=== PATIENT | female | born 1940 | race Caucasian/White ===

== ENCOUNTER 2017-08-29 09:39 | Outpatient (POV) | payer MEDICARE, OTHER, SELFPAY | END 2017-08-29 12:52 | disposition home or self-care (01) | PROVIDERS: Family Provider Nurse Practitioner Family; PCP Nurse Practitioner Family; Visit Provider Urology | DX: R39.198 Other difficulties with micturition (principal); R35.0 Frequency of micturition; R39.15 Urgency of urination | CPT/HCPCS: 53665 ==

== ENCOUNTER → 2017-09-11 13:25 | Outpatient (CLI) | payer MEDICARE, OTHER, SELFPAY ==
[2017-09-11 16:54] LABS: PHA INR Fingerstick 2.4 (0.9-1.1)
== END ==
PROVIDERS: Family Provider Emergency Medicine; PCP Nurse Practitioner Family; Visit Provider Internal Medicine
DX: I48.91 Unspecified atrial fibrillation (principal); Z79.01 Long term (current) use of anticoagulants; Z51.81 Encounter for therapeutic drug level monitoring
CPT/HCPCS: 85610; 99211; G0463

== ENCOUNTER → 2017-09-30 13:07 | Outpatient (CLI) | payer MEDICARE, OTHER, SELFPAY ==
[2017-09-30 14:09] LABS: Prothrombin Time 50.3 seconds (9.4-11.8)
[2017-09-30 14:10] LABS: INR 4.59 (0.9-1.1)
[2017-09-30 14:39] LABS: PHA INR Fingerstick 4.3 (0.9-1.1)
--- NOTE | 2017-09-30 16:09 | XR_ITS ---
XR chest 2V Ordering Physician: Otto Schaffer MD Patient Age: 77 years: Female HISTORY: ITS.REASON: cough Cough congestion. Flu 3 weeks ago. TECHNIQUE: PA and lateral chest COMPARISON : FINDINGS No focal pneumonia or consolidation. Noncontrasted technique exaggerates markings. Coarsening of markings at the right infrahilar region is similar to previous studies considering technique. Summary markings at the left infrahilar region most likely reflecting a stable changes as well. I see no definitive acute infiltrate. There is no pleural effusion. Small calcified granuloma left lung base with calcified hilar nodes bilaterally reflecting old granulomatous disease. Lateral film appears similar with kyphosis T-spine and slight stable loss of height and wedging thoracic vertebra contributing. Mild hyperexpansion. Ribs intact. IMPRESSION: Stable chronic changes with nothing definitely acute
== END ==
PROVIDERS: Pharmacist; Family Provider Emergency Medicine; PCP Nurse Practitioner Family; Visit Provider Internal Medicine
DX: R05 Cough (principal); I48.91 Unspecified atrial fibrillation; Z79.01 Long term (current) use of anticoagulants
CPT/HCPCS: 36415; 71046; 85610; 99211; G0463

== ENCOUNTER → 2017-10-09 13:11 | Outpatient (CLI) | payer MEDICARE, OTHER, SELFPAY | END | disposition home or self-care (01) | PROVIDERS: PCP Emergency Medicine; Visit Provider Nurse Practitioner Family | DX: Z79.01 Long term (current) use of anticoagulants (principal); I48.91 Unspecified atrial fibrillation; Z51.81 Encounter for therapeutic drug level monitoring | CPT/HCPCS: 85610 ==

== ENCOUNTER 2017-10-21 13:23 | Outpatient (CLI) | payer MEDICARE, OTHER, SELFPAY | END 2017-10-21 16:33 | disposition home or self-care (01) | PROVIDERS: PCP Emergency Medicine; Visit Provider Internal Medicine | DX: Z79.01 Long term (current) use of anticoagulants (principal); Z51.81 Encounter for therapeutic drug level monitoring; I48.91 Unspecified atrial fibrillation | CPT/HCPCS: 85610; 99211; G0463 ==

== ENCOUNTER 2017-11-15 10:51 | Outpatient (CLI) | payer MEDICARE, OTHER, SELFPAY ==
[2017-11-15 14:00] LABS: Alanine Aminotransferase 50 U/L (12-78); Albumin Level 3.4 gm/dL (3.4-5.0); Alkaline Phosphatase 98 U/L (46-116); Anion Gap 10.5 mEq/L (5-15); Aspartate Amino Transferase 46 U/L (15-37); Bilirubin,Direct 0.2 mg/dL (0.0-0.2); Bilirubin,Total 0.6 mg/dL (0.2-1.0); Blood Urea Nitrogen 31 mg/dL (7-18); Carbon Dioxide 28 mmol/L (21.0-32.0); Chloride 102 mmol/L (98-107); Creatinine,Serum 1.45 mg/dL (0.55-1.02); Estimated Glomerular Filt Rate 35 ml/min (>60); Free Thyroxine Index 5.5 ug/dL (5.93-13.13); GFR (African American) 42 ML/MIN (>60); Glucose 81 mg/dL (74-106); Potassium 4.5 mmoL/L (3.5-5.1); Sodium 136 mmol/L (136-145); T4 (Thyroxine) 15.6 ug/dl (4.7-13.3); Thyroid Stimulating Hormone 1.97 uIU/ml (0.358-3.740); Total Protein,Serum 6.8 gm/dL (6.4-8.2); Triiodothryronine (T3) Uptake 35 % (31-39)
[2017-11-15 14:02] LABS: PHA INR Fingerstick 1.6 (0.9-1.1)
== END 2017-11-15 15:00 | disposition home or self-care (01) ==
LOC: ACC 10:52
PROVIDERS: Internal Medicine Cardiovascular Disease; Physician Assistant; PCP Emergency Medicine; Visit Provider Emergency Medicine
DX: Z79.01 Long term (current) use of anticoagulants (principal); Z51.81 Encounter for therapeutic drug level monitoring; I48.91 Unspecified atrial fibrillation
CPT/HCPCS: 36415; 80048; 80076; 84436; 84443; 84479; 85610; 99211; G0463

== ENCOUNTER 2017-11-15 12:50 | Outpatient (CLI) | payer MEDICARE, OTHER, SELFPAY | END 2017-11-15 15:19 | LOC: LAB 12:56 | PROVIDERS: Visit Provider Internal Medicine Cardiovascular Disease | DX: E78.2 Mixed hyperlipidemia; I10 Essential (primary) hypertension; I48.2 Chronic atrial fibrillation; I25.10 Atherosclerotic heart disease of native coronary artery without angina pectoris; Z95.5 Presence of coronary angioplasty implant and graft | CPT/HCPCS: 36415; 80048; 80076; 84436; 84443; 84479; 85610; 99211; G0463 ==

== ENCOUNTER 2017-11-25 13:23 | Outpatient (CLI) | payer MEDICARE, OTHER, SELFPAY ==
[2017-11-25 14:25] LABS: PHA INR Fingerstick 1.7 (0.9-1.1)
== END 2017-11-25 15:45 | disposition home health service (06) ==
LOC: ACC 13:24
PROVIDERS: Family Provider Emergency Medicine; PCP Emergency Medicine; Visit Provider Internal Medicine
DX: Z79.01 Long term (current) use of anticoagulants (principal); Z51.81 Encounter for therapeutic drug level monitoring; I48.91 Unspecified atrial fibrillation
CPT/HCPCS: 85610; 99211; G0463

== ENCOUNTER 2017-12-09 13:21 | Outpatient (CLI) | payer MEDICARE, OTHER, SELFPAY ==
[2017-12-09 13:59] LABS: PHA INR Fingerstick 2.8 (0.9-1.1)
--- NOTE | 2017-12-09 15:38 | XR_ITS ---
XR knee LT 4V COMPARISON: None HISTORY: Left knee pain after recent injury TECHNIQUE: AP lateral and oblique views FINDINGS: There is minor joint space narrowing medially. There is no significant spurring of the tibial spines. There is mild narrowing of patellofemoral space with minor spurring of the patella superiorly. There is no effusion and there is no fracture or loose body. Bone mineralization appears normal. There does appear to be mild diffuse soft tissue swelling of the infrapatellar region and anterior to the tibia. IMPRESSION: Probable soft tissue injury inferior to the patella along with minor degenerative changes of knee as noted
== END 2017-12-09 14:12 | disposition home or self-care (01) ==
LOC: ACC 13:23
PROVIDERS: PCP Emergency Medicine; Visit Provider Internal Medicine
DX: Z79.01 Long term (current) use of anticoagulants; Z51.81 Encounter for therapeutic drug level monitoring; I48.91 Unspecified atrial fibrillation; S80.02XA Contusion of left knee, initial encounter; W19.XXXA Unspecified fall, initial encounter
CPT/HCPCS: 73564; 85610; 99211; G0463

== ENCOUNTER 2017-12-17 11:51 | Inpatient (IN) ==
--- NOTE | 2017-12-17 12:07 | Emergency Department Note ---
ED Disposition Clinical Impression: Hemarthrosis Disposition: Still a Patient Condition on Discharge: Fair Referrals: Tracee Arthur APRN [Primary Care Provider] - - Critical Care Critical Care Time: No Attestation: On , the high probability of a clinically significant, sudden or life threatening deterioration of the following system(s) required my full and direct attention, intervention and personal management. The time I documented below is in addition to time spent performing reported procedures but includes the following listed in this critical care notation. Medical Decision Making - Ilan Inquiry Pt receiving controlled substance: Yes Ilan was queried for this patient: No Reason not queried -: Emergent pt cond-no time Risks and benefits of using a controlled substance: were not discussed with pt by me Vital Signs: 12/17/17 11:55 Temperature 98.3 F Temperature Source Oral Pulse Rate [Right Radial] 67 Respiratory Rate 24 Blood Pressure [Right Arm] 190/124 Blood Pressure Mean [Right Arm] 146 Blood Pressure Source [Right Arm] Automatic Cuff Blood Pressure Position [Right Arm] Supine 02 Sat by Pulse Oximetry 96 Oxygen Delivery Method Room Air - Lab Data Lab Results 12/17/17 11:45: WBC 8.1, RBC 3.15 L, Hgb 8.0 L, Hct 27.8 L, MCV 88.3, MCH 25.4 L , MCHC 28.8 L, RDW 17.5, Plt Count 475 H, MPV 7.6, Neut % (Auto) 81.0 H, Lymph % (Auto) 9.9 L, [place] % (Auto) 7.3, Eos % (Auto) 1.3, Baso % (Auto) 0.4, Neut # ( Auto) 6.6, Lymph # (Auto) 0.8, [place] # (Auto) 0.6, Eos # (Auto) 0.1, Baso # (Auto ) 0.0 12/17/17 11:45: PT 20.4 H, INR 1.88 H 12/17/17 11:45: Sodium 140, Potassium 5.1, Chloride 104, Carbon Dioxide 27, Anion Gap 14.1, BUN 29 H, Creatinine 1.62 H, Estimated Creat Clear 1, Estimated GFR 31 L, Est GFR ( Amer) 37 L, Glucose 104, Calcium 8.7, Total Bilirubin 1.1 H, AST 43 H, ALT 30, Alkaline Phosphatase 108, Total Protein 6.6, Albumin 3.4, Globulin 3.2, Albumin/Globulin Ratio 1.1 Result diagrams: 12/17/17 11:45 12/17/17 11:45 Orders (Tests/Meds): ED MEDICATIONS Discontinued Medications Generic Name Dose Route Start Last Admin Trade Name Freq PRN Reason Stop Dose Admin Meperidine HCl 25 mg 12/17/17 13:48 12/17/17 13:53 Meperidine 25mg/Ml 1ml Syringe IV 12/17/17 13:49 25 mg ONCE ONE Administration Morphine Sulfate 2 mg 12/17/17 12:12 12/17/17 12:13 Morphine 2mg/Ml Syringe IV 12/17/17 12:13 2 mg ONCE ONE Administration Morphine Sulfate 4 mg 12/17/17 12:13 12/17/17 12:14 Morphine 4mg/Ml Syringe IV 12/17/17 12:14 4 mg ONCE ONE Administration Morphine Sulfate 4 mg 12/17/17 13:07 12/17/17 13:12 Morphine 4mg/Ml Syringe IV 12/17/17 13:08 4 mg ONCE ONE Administration Morphine Sulfate 4 mg 12/17/17 13:40 12/17/17 13:48 Morphine 4mg/Ml Syringe IV 12/17/17 13:41 Not Given ONCE ONE Ondansetron HCl 4 mg 12/17/17 12:12 12/17/17 12:13 Zofran 4mg/2ml Vial IV 12/17/17 12:13 4 mg ONCE ONE Administration - Radiology Data #1 Image(s): Knee Image Reviewed: Yes I reviewed the patient's radiology image Large effusion. No fracture seen. - ECG Data Tracing #1 EKG interpreted by Chapin Jacobs MD: Rhythm: sinus Rate: 63 [place]: normal Ectopy: Premature atrial contraction Conduction: normal ST Segment Changes: none T Wave Changes: none Q Waves: none No evidence of acute ischemia or injury Medical Decision Narrative: 1:15 PM: Discussed with Dr. Arguello. He requests a knee immobilizer and a polar pack. Does not feel arthrocentesis is indicated at this time due to the risk of recurrence and continuous oozing creating a tract to the intra-articular space. Does not feel that reversal of anticoagulation will be necessary, but will leave that to primary care provider. Call placed to Dr. Gentile. 1:50 PM: I have discussed the case with Dr. Gentile who agrees to admit the patient to the hospital. We discussed the patient's clinical information, including history, exam, laboratory and radiology results and ED course. Per hospital procedure, I will write temporary bridge inpatient orders on the patient. Specific orders requested by the admitting physician: Discuss anticoagulation with Ricki at Coumadin clinic. I spoke with Ricki and he recommends holding Coumadin today, starting Lovenox 75 mg twice daily tomorrow morning. 1:30 PM: Patient states morphine is making the pain worse. General Adult HPI - General Chief complaint: PAIN Stated complaint: LEFT KNEE PAIN Time Seen by Provider: 12/17/17 12:07 Mode of Arrival: EMS Limitations: No Limitations Description of Symptoms (Recalled from ER Triage Doc. by RN): PT STATES SHE FELL ON HER LEFT KNEE 2 WEEKS AGO AND HAD A XRAY DONE LAST SATURDAY. PT'S LEFT KNEE IS VERY SWOLLEN,BRUISED, HOT AND EXTREMELY PAINFUL. - History of Present Illness HPI narrative: Brought in by ambulance for left pain and swelling. She fell 2 weeks ago and injured her left knee. She saw her primary care provider on 12/09/17 and had an x -ray which showed no fractures. She has had another fall since then, but says she only injured her right knee. Right knee does not hurt, just her left knee hurts. Last night she began having swelling of her left knee with increasing pain and it has progressed through the night. Pain is also now running down her left butler. No numbness or tingling. She is on Coumadin for a.fib. She last had her INR checked a week ago and says it was 2.7. - Related Data Home Medications Medication Instructions Recorded Confirmed aspirin 81 mg tablet,delayed 81 mg PO QDAY 09/17/17 12/17/17 release calcium carbonate 600 mg calcium 600 mg PO ONCE tab 09/17/17 12/17/17 (1,500 mg) tablet hydralazine 50 mg tablet 75 mg PO TID 09/17/17 12/17/17 omeprazole 40 mg capsule,delayed 40 mg PO ONCE 09/17/17 12/17/17 release polyethylene glycol 3350 17 17 g PO DAILY 09/17/17 12/17/17 gram/dose oral powder potassium chloride ER 10 mEq 10 meq PO TID 09/17/17 12/17/17 tablet,extended release pravastatin 40 mg tablet 40 mg PO QHS 09/17/17 12/17/17 warfarin 3 mg tablet 3 mg PO QDAY 09/17/17 12/17/17 Amiodarone HCl [Amiodarone 200mg 200 mg PO QDAY 12/17/17 12/17/17 Tab] Bisoprolol Fumarate [Zebeta 5mg 5 mg PO ONCE 12/17/17 12/17/17 tablet] Bumetanide 2 mg PO QDAY 12/17/17 12/17/17 Isosorbide Mononitrate [Isosorbide 120 mg PO QAM 12/17/17 12/17/17 Mononitrate ER] Tramadol HCl [Tramadol ER 100mg 100 mg PO QDAY 12/17/17 12/17/17 Tab] Allergies Allergy/AdvReac Type Severity Reaction Status Date / Time cephalexin [From KEFLEX] Allergy Mild Verified 12/17/17 12:03 ciprofloxacin [CIPROFLOXACIN] Allergy Mild Verified 12/17/17 12:03 Sulfa (Sulfonamide Allergy Mild Verified 12/17/17 12:03 Antibiotics) [SULFA (SULFONAMIDE ANTIBIOTICS)] [facility] History I have reviewed the patient's past medical history: Yes Medical History: Reports:: Cancer (COLON), Gastroesophageal Reflux Disease(GERD) , Hypertension Denies:: Diabetes Mellitus Type 1, Diabetes Mellitus Type 2, MRSA Comment: 2 Heart Stent Other Surgeries: Yes: Colonoscopy, Colon Resection, Hernia Repair, Hysterectomy- Partial, Thyroidectomy Amputation: No Fractures: Yes Comment: HEART ATTACK, AFIB, HEART STENT X 2 - Social History Smoking Status: Never smoker Tobacco Type: cigarettes Alcohol Intake: never Substance Use Type: denies use Occupational Status: retired Housing: house - Psychiatric History Expresses thoughts of harming self/others: None Suicide Plan Description: No Plan Family Hx:: Stroke ROS Obtained: Yes Systems reviewed as appropriate & no additional complaints - Constitutional Constitutional: Denies fever(s) Physical Exam - General General appearance: alert, in distress (pain) - Head Head exam: atraumatic - Respiratory Respiratory exam: Absent: respiratory distress - Cardiovascular Cardiovascular exam: Present: regular rate, normal rhythm - Expanded Lower Extremity Exam Left Comment: Massive effusion of left knee, tense. Tender. Ecchymosis from left knee down the left foot. Normal pedal pulses, capillary refill, warmth, sensation, and movement of toes. Right Comment: Ecchymosis from right knee down the right foot. No joint effusion. Normal neurovascular status. - Neurological Exam Neurological exam: Present: alert, oriented X3. Absent: motor sensory deficit
[2017-12-17 12:21] LABS: Basophils % 0.4 % (0.1-2.0); Eosinophils # 0.1 K/mm3 (0.0-0.4); Eosinophils % 1.3 % (0.1-12.0); Lymphocytes # 0.8 K/mm3 (0.7-4.5); Lymphocytes % 9.9 K/mm3 (10-50); Mean Corpuscular HGB Conc 28.8 g/dL (31.8-35.4); Mean Corpuscular Hemoglobin 25.4 pg (27.0-31.2); Mean Corpuscular Volume 88.3 fl (81-99); Mean Platelet Volume 7.6 fl (7.4-10.4); Monocytes # 0.6 K/mm3 (0.1-1.0); Monocytes % 7.3 % (1.7-9.3); Neutrophils # 6.6 K/mm3 (1.8-7.8); Platelet Count 475 K/mm3 (142-424); Red Blood Count 3.15 M/mm3 (4.20-5.40); Red Cell Distribution Width 17.5 % (11.5-17.5); White Blood Count 8.1 K/mm3 (4.8-10.8)
[2017-12-17 12:24] LABS: INR 1.88 (0.9-1.1); Prothrombin Time 20.4 seconds (9.4-11.8)
[2017-12-17 12:27] LABS: Albumin Level 3.4 gm/dL (3.4-5.0); Albumin/Globulin Ratio 1.1 (1.1-1.8); Anion Gap 14.1 mEq/L (5-15); Bilirubin,Total 1.1 mg/dL (0.2-1.0); Calcium 8.7 mg/dL (8.5-10.1); Globulin 3.2 gm/dl (1.3-3.2); Potassium 5.1 mmoL/L (3.5-5.1); Total Protein,Serum 6.6 gm/dL (6.4-8.2)
[2017-12-17 12:33] LABS: Hematocrit 27.8 % (37.0-47.0)
[2017-12-17 14:43] LABS: Microscopic, Urine URINE MICROSCOPIC (MICROSCOPIC)
[2017-12-17 14:53] LABS: Appearance,Urine CLEAR (Clear); Bilirubin,Urine Negative (Negative); Blood, Urine Negative (Negative); Color,Urine YELLOW (Yellow); Glucose,Urine (UA) Negative (Negative); Ketones,Urine TRACE (Negative); Leukocyte Esterase,Urine Negative (Negative); PH,Urine 6.5 (5.0-8.5); Protein,Urine Negative (Negative); Urobilinogen,Urine 0.2 EU/dl (0.2)
[2017-12-17 15:04] LABS: Bacteria,Urine Trace /lpf; WBC,Urine Occasional #/hpf (0-3)
--- NOTE | 2017-12-17 15:07 | Pharmacy Consult Notes ---
[facility] Pharmacy VTE Monitoring - Patient Demographics Admission date: 12/17/17 Report Date: 12/17/17 Time: 15:06 Allergies/Adverse Reactions: Patient Allergies cephalexin [From KEFLEX] Allergy (Mild, Verified 12/17/17 12:03) ciprofloxacin [CIPROFLOXACIN] Allergy (Mild, Verified 12/17/17 12:03) Sulfa (Sulfonamide Antibiotics) [SULFA (SULFONAMIDE ANTIBIOTICS)] Allergy (Mild , Verified 12/17/17 12:03) Height: 1.6 m Weight: 2.353 kg Patient Problems: Current Active Problems Hemarthrosis (Acute) - VTE Risk Labs: VTE Related Lab Results Hgb 8.0 g/dL (12.2-16.2) L 12/17/17 11:45 Hct 27.8 % (37.0-47.0) L 12/17/17 11:45 Plt Count 475 K/mm3 (142-424) H 12/17/17 11:45 PT 20.4 seconds (9.4-11.8) H 12/17/17 11:45 INR 1.88 (0.9-1.1) H 12/17/17 11:45 BUN 29 mg/dL (7-18) H 12/17/17 11:45 Creatinine 1.62 mg/dL (0.55-1.02) H 12/17/17 11:45 Estimated Creat Clear 1 mL/min (0-300) 12/17/17 11:45 Clinical Trial Participant: No - Prophylaxis VTE Prophylaxis Ordered?: Yes Types of VTE Prophylaxis: Pharmacological Pharmacologic Type: Enoxaparin (AND WARFARIN)
--- NOTE | 2017-12-17 17:27 | Consult Report ---
*Admission Date: 12/17/17 *Chief complaint: Left leg pain *History of present illness: The patient is a 77-year-old female who is currently on Coumadin for a history of atrial fibrillation. She has a cardiac history positive for myocardial infarction and stent placement. She reports she fell on December 05 and incurred swelling and bruising involving her left knee area. This progressed somewhat in size and pain however the patient was able to continue walking. She reports that the pain increased enough to prompt her to visit the emergency department where she was evaluated and x-rays taken on December 09. No effusion was noted nor was fracture or loose body noted at that time. There was diffuse soft tissue swelling present. The patient reports that last night she noted the leg to begin to swell again and she noted increased swelling throughout the night. This morning, she noted the inability to walk secondary to pain and was brought to the emergency department by ambulance. I was called by the emergency department staff and consulted by telephone. The patient was admitted to Dr. Gentile and a polar pack and knee immobilizer applied. The patient reportedly responded better to Demerol for pain control then morphine. Examination shows the patient to be alert and cooperative and in no apparent distress. She states she feels much better with the polar pack and the immobilizer in place. Both are removed for examination of the knee. Range of motion is not tested secondary to known inflammation and pain. X-rays show no evidence of fracture however there is a large infra-patella fusion consistent with hematoma/bursal fluid. Given the history, this is much more likely to be a collection of blood. Exam shows ecchymosis involving the skin. I do not detect distinct areas of fluctuance and there is some rebound firmness suggestive that there may be a clot in the bursa itself. Although the skin is quite ecchymotic, no ulcerations or deficits are noted. The toes are warm and dry and capillary refill appears less than 2 seconds. There are older ecchymotic changes in the ankle and toes which are nontender. In the pretibial area, exam shows inflammatory tenderness. In the region of the knee itself the tenderness is much more acute. ASSESSMENT the patient has a large bursal fluid collection in the infrapatellar region which is consistent with bleeding. At present, no distinct pocket of fluid suitable for aspiration is noted. [Note is made that the patient is not interested in aspiration] There is no cellulitis or inflammatory changes suggestive of an infection RECOMMENDATIONS reapplied the polar pack and the knee immobilizer per the patient's request. The knee immobilizer and polar pack are for comfort only. With the patient's increased BUN and creatinine, I will not recommend NSAIDs at this point although these may be a consideration if approved by her attending physician. Noted pharmacies recommendation for Lovenox 75 mg twice daily. Again I will defer to Dr. Gentile's opinion on the necessity of this for her atrial fibrillation, however from an orthopedic standpoint, minimizing anticoagulants at this stage will likely help further progression or bleeding into the bursa and subcutaneous tissues. I will recheck her in the morning and if swelling is increased, I will speak to radiology and see if they would be able to ultrasound this area and possibly aspirate any liquefied hematoma. She also may be a candidate for mobilization using negative polarity techniques offered by the lymphedema clinic. Will follow. [facility] History Medical History: Reports:: Atrial Fibrillation, Gastroesophageal Reflux Disease( GERD), Hyperlipidemia, Hypertension Denies:: Cancer, Diabetes Mellitus Type 1, Diabetes Mellitus Type 2, MRSA Other Medical History: Reports: Arthritis Other Surgeries: Yes: Colonoscopy, Colon Resection, Hernia Repair, Hysterectomy- Partial, Thyroidectomy Amputation: No Fractures: Yes - *Social History Educational Level: Completed High School Smoking Status: Never smoker Tobacco Type: cigarettes Alcohol Intake: never Substance Use Type: denies use Occupational Status: retired Housing: house Household Members: none - Psychiatric History Expresses thoughts of harming self/others: None Suicide Plan Description: No Plan *Family Hx:: Cancer, Diabetes, Heart Attack, Hyperlipidemia, Hypertension, Stroke Meds Home Medications Medication Instructions Recorded Confirmed Type aspirin 81 mg tablet,delayed 81 mg PO DAILY 09/17/17 12/17/17 History release calcium carbonate 600 mg calcium 600 mg PO ONCE tab 09/17/17 12/17/17 History (1,500 mg) tablet hydralazine 50 mg tablet 75 mg PO TID 09/17/17 12/17/17 History omeprazole 40 mg capsule,delayed 40 mg PO DAILY 09/17/17 12/17/17 History release polyethylene glycol 3350 17 17 g PO DAILY 09/17/17 12/17/17 History gram/dose oral powder potassium chloride ER 10 mEq 10 meq PO TID 09/17/17 12/17/17 History tablet,extended release pravastatin 40 mg tablet 40 mg PO HS 09/17/17 12/17/17 History warfarin 3 mg tablet 1.5 mg PO MOFR 09/17/17 12/17/17 History Amiodarone HCl [Amiodarone 200mg 200 mg PO DAILY 12/17/17 12/17/17 History Tab] Bisoprolol Fumarate [Zebeta 5mg 5 mg PO DAILY 12/17/17 12/17/17 History tablet] Bumetanide 2 mg PO DAILY 12/17/17 12/17/17 History Isosorbide Mononitrate [Isosorbide 120 mg PO DAILY 12/17/17 12/17/17 History Mononitrate ER] Tramadol HCl [Tramadol ER 100mg 100 mg PO DAILY 12/17/17 12/17/17 History Tab] Warfarin Sodium [Warfarin Sodium] 3 mg PO SUTUWETHSA 12/17/17 12/17/17 History Allergies Allergy/AdvReac Type Severity Reaction Status Date / Time cephalexin [From KEFLEX] Allergy Mild Verified 12/17/17 12:03 ciprofloxacin [CIPROFLOXACIN] Allergy Mild Verified 12/17/17 12:03 Sulfa (Sulfonamide Allergy Mild Verified 12/17/17 12:03 Antibiotics) [SULFA (SULFONAMIDE ANTIBIOTICS)] Exam Vital signs and Labs for Last 24 Hours: Temp Pulse Resp BP Pulse Ox 97.9 F 69 20 191/85 100 12/17/17 15:50 12/17/17 15:50 12/17/17 15:50 12/17/17 15:50 12/17/17 15:50 Laboratory Results - last 24 hr 12/17/17 14:35: Urine Color Yellow, Urine Appearance Clear, Urine pH 6.5, Ur Specific [place] 1.010, Urine Protein Negative, Urine Glucose (UA) Negative, Urine Ketones Trace, Urine Blood Negative, Urine Nitrate Negative, Urine Bilirubin Negative, Urine Urobilinogen 0.2, Ur Leukocyte Esterase Negative, Urine RBC None, Urine WBC Occasional, Ur Squamous Epith Cells None, Urine Bacteria Trace I & O for Last 24 hours: Intake & Output 12/15/17 12/16/17 12/17/17 12/18/17 11:59 11:59 11:59 11:59 Weight 161 lb 4 oz Results - Labs Result Diagrams: 12/17/17 11:45 12/17/17 11:45 Labs: All other labs normal.
[2017-12-18 06:46] LABS: INR 1.07 (0.9-1.1); Prothrombin Time 11.6 seconds (9.4-11.8)
[2017-12-18 07:12] LABS: Basophils % 0.3 % (0.1-2.0); Eosinophils # 0.2 K/mm3 (0.0-0.4); Eosinophils % 2.8 % (0.1-12.0); Lymphocytes # 2.1 K/mm3 (0.7-4.5); Lymphocytes % 28.7 K/mm3 (10-50); Mean Corpuscular HGB Conc 29.3 g/dL (31.8-35.4); Mean Corpuscular Hemoglobin 29.4 pg (27.0-31.2); Mean Corpuscular Volume 100.1 fl (81-99); Mean Platelet Volume 7.9 fl (7.4-10.4); Monocytes # 0.5 K/mm3 (0.1-1.0); Monocytes % 6.7 % (1.7-9.3); Neutrophils # 4.5 K/mm3 (1.8-7.8); Neutrophils % 61.5 % (37.0-80.0); Platelet Count 269 K/mm3 (142-424); Red Blood Count 3.06 M/mm3 (4.20-5.40); Red Cell Distribution Width 16.5 % (11.5-17.5); White Blood Count 7.3 K/mm3 (4.8-10.8)
[2017-12-18 07:26] LABS: Hemoglobin 9.1 g/dL (12.2-16.2)
[2017-12-18 07:27] LABS: Hematocrit 30.6 % (37.0-47.0)
--- NOTE | 2017-12-18 09:09 | History & Physical Report ---
*Admission Date: 12/17/17 *Chief complaint: swollen jt *History of present illness: The patient is a 77-year-old female who is currently on Coumadin for a history of atrial fibrillation. She has a cardiac history positive for myocardial infarction and stent placement. She reports she fell on December 05 and incurred swelling and bruising involving her left knee area. This progressed somewhat in size and pain however the patient was able to continue walking. She reports that the pain increased enough to prompt her to visit the emergency department where she was evaluated and x-rays taken on December 09. No effusion was noted nor was fracture or loose body noted at that time. There was diffuse soft tissue swelling present. The patient reports that last night she noted the leg to begin to swell again and she noted increased swelling throughout the night. This morning, she noted the inability to walk secondary to pain and was brought to the emergency department by ambulance. I was called by the emergency department staff and consulted by telephone. The patient was admitted to Dr. Gentile and a polar pack and knee immobilizer applied. The patient reportedly responded better to Demerol for pain control then morphine. Examination shows the patient to be alert and cooperative and in no apparent distress. She states she feels much better with the polar pack and the immobilizer in place. Both are removed for examination of the knee. Range of motion is not tested secondary to known inflammation and pain. X-rays show no evidence of fracture however there is a large infra-patella fusion consistent with hematoma/bursal fluid. Given the history, this is much more likely to be a collection of blood. Exam shows ecchymosis involving the skin. I do not detect distinct areas of fluctuance and there is some rebound firmness suggestive that there may be a clot in the bursa itself. Although the skin is quite ecchymotic, no ulcerations or deficits are noted. The toes are warm and dry and capillary refill appears less than 2 seconds. There are older ecchymotic changes in the ankle and toes which are nontender. In the pretibial area, exam shows inflammatory tenderness. In the region of the knee itself the tenderness is much more acute. ASSESSMENT the patient has a large bursal fluid collection in the infrapatellar region which is consistent with bleeding. At present, no distinct pocket of fluid suitable for aspiration is noted. [Note is made that the patient is not interested in aspiration] There is no cellulitis or inflammatory changes suggestive of an infection RECOMMENDATIONS reapplied the polar pack and the knee immobilizer per the patient's request. The knee immobilizer and polar pack are for comfort only. With the patient's increased BUN and creatinine, I will not recommend NSAIDs at this point although these may be a consideration if approved by her attending physician. Noted pharmacies recommendation for Lovenox 75 mg twice daily. Again I will defer to Dr. Gentile's opinion on the necessity of this for her atrial fibrillation, however from an orthopedic standpoint, minimizing anticoagulants at this stage will likely help further progression or bleeding into the bursa and subcutaneous tissues. I will recheck her in the morning and if swelling is increased, I will speak to radiology and see if they would be able to ultrasound this area and possibly aspirate any liquefied hematoma. She also may be a candidate for mobilization using negative polarity techniques offered by the lymphedema clinic. Will follow. [facility] History I have reviewed the patient's past medical history: Yes Medical History: Reports:: Atrial Fibrillation, Gastroesophageal Reflux Disease( GERD), Hyperlipidemia, Hypertension Denies:: Cancer, Diabetes Mellitus Type 1, Diabetes Mellitus Type 2, MRSA Other Medical History: Reports: Arthritis Other Surgeries: Yes: Colonoscopy, Colon Resection, Hernia Repair, Hysterectomy- Partial, Thyroidectomy Amputation: No Fractures: Yes - *Social History Educational Level: Completed High School Smoking Status: Never smoker Tobacco Type: cigarettes Alcohol Intake: never Substance Use Type: denies use Occupational Status: retired Housing: house Household Members: none - Psychiatric History Expresses thoughts of harming self/others: None Suicide Plan Description: No Plan *Family Hx:: Cancer, Diabetes, Heart Attack, Hyperlipidemia, Hypertension, Stroke Review of Systems - Review of Systems Review of systems:: pertinent systems reviewed and negative unless documented below - Constitutional Denies fever(s) - Eyes Denies change in vision - ENT Denies sinus pain - *Cardiovascular Denies chest pain at rest - *Respiratory Denies cough - *Gastrointestinal Denies abdominal pain - *Musculoskeletal Reports joint pain, Reports joint swelling, Reports limited joint movement - Integumentary/Breasts Denies rash - *Neurologic Denies dizziness Meds Home Medications Medication Instructions Recorded Confirmed Type aspirin 81 mg tablet,delayed 81 mg PO DAILY 09/17/17 12/17/17 History release calcium carbonate 600 mg calcium 600 mg PO ONCE tab 09/17/17 12/17/17 History (1,500 mg) tablet hydralazine 50 mg tablet 75 mg PO TID 09/17/17 12/17/17 History omeprazole 40 mg capsule,delayed 40 mg PO DAILY 09/17/17 12/17/17 History release polyethylene glycol 3350 17 17 g PO DAILY 09/17/17 12/17/17 History gram/dose oral powder potassium chloride ER 10 mEq 10 meq PO TID 09/17/17 12/17/17 History tablet,extended release pravastatin 40 mg tablet 40 mg PO HS 09/17/17 12/17/17 History warfarin 3 mg tablet 1.5 mg PO MOFR 09/17/17 12/17/17 History Amiodarone HCl [Amiodarone 200mg 200 mg PO DAILY 12/17/17 12/17/17 History Tab] Bisoprolol Fumarate [Zebeta 5mg 5 mg PO DAILY 12/17/17 12/17/17 History tablet] Bumetanide 2 mg PO DAILY 12/17/17 12/17/17 History Isosorbide Mononitrate [Isosorbide 120 mg PO DAILY 12/17/17 12/17/17 History Mononitrate ER] Tramadol HCl [Tramadol ER 100mg 100 mg PO DAILY 12/17/17 12/17/17 History Tab] Warfarin Sodium [Warfarin Sodium] 3 mg PO SUTUWETHSA 12/17/17 12/17/17 History Allergies Allergy/AdvReac Type Severity Reaction Status Date / Time cephalexin [From KEFLEX] Allergy Mild Verified 12/17/17 12:03 ciprofloxacin [CIPROFLOXACIN] Allergy Mild Verified 12/17/17 12:03 Sulfa (Sulfonamide Allergy Mild Verified 12/17/17 12:03 Antibiotics) [SULFA (SULFONAMIDE ANTIBIOTICS)] Exam Vital signs and Labs for Last 24 Hours: Temp Pulse Resp BP Pulse Ox 99.5 F 63 20 141/58 100 12/18/17 07:25 12/18/17 07:25 12/18/17 07:25 12/18/17 07:25 12/18/17 07:25 Laboratory Results - last 24 hr 12/17/17 14:35: Urine Color Yellow, Urine Appearance Clear, Urine pH 6.5, Ur Specific [place] 1.010, Urine Protein Negative, Urine Glucose (UA) Negative, Urine Ketones Trace, Urine Blood Negative, Urine Nitrate Negative, Urine Bilirubin Negative, Urine Urobilinogen 0.2, Ur Leukocyte Esterase Negative, Urine RBC None, Urine WBC Occasional, Ur Squamous Epith Cells None, Urine Bacteria Trace 12/18/17 06:05: WBC 7.3, RBC 3.06 L, Hgb 9.1 L D, Hct 30.6 L, MCV 100.1 H, MCH 29.4, MCHC 29.3 L, RDW 16.5, Plt Count 269 D, MPV 7.9, Neut % (Auto) 61.5, Lymph % (Auto) 28.7, [place] % (Auto) 6.7, Eos % (Auto) 2.8, Baso % (Auto) 0.3, Neut # (Auto) 4.5, Lymph # (Auto) 2.1, [place] # (Auto) 0.5, Eos # (Auto) 0.2, Baso # (Auto) 0.0 12/18/17 06:05: PT 11.6, INR 1.07 I & O for Last 24 hours: Intake & Output 12/15/17 12/16/17 12/17/17 12/18/17 11:59 11:59 11:59 11:59 Intake Total 480 / 480 Output Total 1700 / 1700 Balance -1220 / -1220 Weight 161 lb 4 oz - Constitutional no acute distress - *Routine HEENT Exam Head: Present: normocephalic Eye: Present: EOMI, PERRL ENT: Absent: mucous membranes dry - *Routine Neck Exam Absent: JVD - *Routine Respiratory Exam Absent: respiratory distress - *Routine Cardiovascular Exam Present: RRR, murmur - *Routine Abdominal Exam Present: soft - *Routine Extremities Exam Present: joint swelling Comments: hematoma with knee immbolizer - *Routine Skin Exam Present: intact - *Routine Neurological Exam Present: alert, CN II-XII intact - Routine Psychiatric Exam Present: normal affect H&P: Result - Labs Labs: Short CBC 12/18/17 Range/Units 06:05 WBC 7.3 (4.8-10.8) K/mm3 Hgb 9.1 L D (12.2-16.2) g/dL Hct 30.6 L (37.0-47.0) % Plt Count 269 D (142-424) K/mm3 Urine 12/17/17 Range/Units 14:35 Urine Color Yellow (Yellow) Urine Appearance Clear (Clear) Urine pH 6.5 (5.0-8.5) Ur Specific [place] 1.010 (1.005-1.030) Urine Protein Negative (Negative) Urine Glucose (UA) Negative (Negative) Assessment and Plan (1) Chronic atrial fibrillation Current visit: No Status: Chronic Category: Medical Code(s): I48.2 - Chronic atrial fibrillation (2) Traumatic hematoma of left knee Current visit: No Status: Acute Qualifiers: Encounter type: initial encounter Qualified Code(s): S80.02XA - Contusion of left knee, initial encounter Category: Medical Code(s): S80.02XA - Contusion of left knee, initial encounter
--- NOTE | 2017-12-18 16:21 | Progress Note ---
Subjective Date: 12/18/17 Time: 09:28 Principal diagnosis: Bursal effusion/hematoma left knee Interval history: Patient rested reasonably comfortably last night however she had significant problems in attempting to ambulate with physical therapy this morning secondary to pain when the leg was in a dependent position. PN: Obj Ex Vital signs: Temp Pulse Resp BP Pulse Ox 98.7 F 60 20 138/55 97 12/18/17 15:24 12/18/17 15:24 12/18/17 15:24 12/18/17 15:24 12/18/17 15:24 Narrative: Examination shows prominent ecchymosis and tenderness along the lateral aspect of the knee and lower leg and calf. Interestingly, the patient does not have marketed tenderness in the tissues overlying the infrapatellar bursa. This is, per radiograph and exam, quite enlarged secondary to an apparent hematoma. Although the skin is quite ecchymotic, there is not appear to be any ulcerations or skin breakdown. - Urinary Catheter Management Mabry Cath placed during this visit: yes Urethral indwelling: Yes Reason for continuing: Other continuation reason (per primary care physician) Insertion date: 12/17/17 Insertion time: 14:34 Progress Note: A&P (1) Chronic atrial fibrillation Status: Chronic Current Visit: No (2) Traumatic hematoma of left knee Status: Acute Assessment and plan: Currently the patient is being seen by physical therapy. She seems to be tolerating the Polar Care cold therapy unit well. I have spoken with physical therapy and they will evaluate the candidate to see if negative polarity treatment to help mobilize some edema fluid may be facial. Although I do not expect this will mobilize intrabursal hematoma, it may help mobilize some of the residual subcutaneous hematoma and certainly some of the edema fluid associated with the inflammatory process of the hematoma resolution. Additionally, therapy will look at pulsed ultrasound to see if they can help break up any hematoma in the bursa as well. From an orthopedic standpoint, minimizing use of anticoagulants would be beneficial in helping prevent recurrence or expansion of this hematoma. I certainly realize that her atrial fibrillation must take precedence but nonetheless, even minimizing use of interval bridge medication such as Lovenox may be helpful from the hematoma aspect. Suspect this will likely take several weeks to resolve. Current Visit: No
--- NOTE | 2017-12-19 10:35 | Progress Note ---
Internal Medicine - PN: Subj *Date: 12/19/17 *Time: 16:46 Exam Vital signs and Labs for Last 24 Hours: Temp Pulse Resp BP Pulse Ox 98.1 F 54 L 18 121/49 93 L 12/19/17 08:00 12/19/17 08:00 12/19/17 08:00 12/19/17 08:00 12/19/17 08:00 I & O for Last 24 hours: Intake & Output 12/16/17 12/17/17 12/18/17 12/19/17 11:59 11:59 11:59 11:59 Intake Total 1320 / 1320 Output Total 1500 / 1500 Balance -180 / -180 - Constitutional no acute distress - *Routine HEENT Exam Head: Present: normocephalic Eye: Present: PERRL ENT: Present: mucous membranes moist - *Routine Neck Exam Present: full ROM - *Routine Respiratory Exam Present: CTA bilaterally - *Routine Cardiovascular Exam Present: RRR - *Routine Abdominal Exam Present: soft, normoactive bowel sounds - *Routine Extremities Exam Present: full ROM Comments: sangita lower ext brusing, left knee in brace and ice pack in place - Routine Back/Spine/Pelvis Exam Back/Spine: Present: full ROM - *Routine Skin Exam Present: intact - *Routine Neurological Exam Present: alert, oriented X3 - Routine Psychiatric Exam Present: normal affect, normal thought process - Detailed Lower Extremity Exam Knee: Left joint effusion, Left swelling, Left tenderness Lower leg: Left swelling Leg image: 1 - swelling and bruising noted 2 - bruising Assessment and Plan (1) Chronic atrial fibrillation Current visit: No Status: Chronic Category: Medical Code(s): I48.2 - Chronic atrial fibrillation (2) Traumatic hematoma of left knee Current visit: No Status: Acute Qualifiers: Encounter type: initial encounter Qualified Code(s): S80.02XA - Contusion of left knee, initial encounter Category: Medical Code(s): S80.02XA - Contusion of left knee, initial encounter - Assessment and plan all Dx Assessment and Plan for all problems:: pt is unable to participate with PT due to pain with applying weight, will change from pain meds to help control pain better have consult with cardiology due to risk of Coumadin and hx of a fib
--- NOTE | 2017-12-19 14:01 | Consult Report ---
History of Present Illness Consult date: 12/19/17 Requesting physician: Arturo Gentile Consult reason: atrial fibrillation Chief complaint: Fall and Left knee swelling Additional Medical History:: 1. Atrial Fibrillation a. Anti-coagulant therapy (Coumadin) b. Currently on Amiodarone 2. Essential Hypertension a. Controlled with antihypertensives 3. Coronary arteriosclerosis in [place] artery a. [place] (2017) b. Drug-eluting stent to proximal mid LAD 4. Hyperlipidemia a. currently on Statin 5. Hemarthrosis (Left knee) 6. Falls a. Frequent falls in the past 2 weeks History of present illness: 77 year old white female admitted to facility for increase pain and swelling of her left knee due to a fall 2 weeks ago. Pt has history of Atrial fibrillation and is currently on Coumadin therapy. Pt has positive cardiac history for myocardial infarction and stent placement to the proximal mid LAD (02/2017). There is also significant history of Hypertension. Pt stated that she was been having multiple falls in the past two weeks. Pt is very vague on her description of activity prior to the falls. Pt is unsure if she has dizziness or loss of balance prior to these falls. Pt reports on December 05, 2017, she had fallen causing injury to her left knee. She reports increase swelling, bruising and pain of the left knee causing her difficulty in walking and performing her daily activities. Pt was evaluated in the Emergency department one day ago for this increase pain and swelling of her left knee. Radiology films were taken revealed no effusion or fracture to the left knee. There was diffuse soft tissue swelling present. X-ray, however, did show a large infra- patella fusion consistent with hematoma/bursal fluid. Pt is alert and oriented appropriately. Pt complains of pain of the left knee. PCP Dr. Gentile requested a Cardiology consult for evaluation of her anti-coagulant therapy due to her atrial fibrillation. EKg revealed sinus rhythm with premature atrial complexes with heart rate of 63bpm. Pt remains in sinus rhythm. Pt denies chest pain or shortness of breath. From a cardiology standpoint, stopping the anticoagulant ( Coumadin) at this time would be beneficial for the patient and decrease her risk of further bleeding. Case was discussed with Dr. Adrian Hernandez. [facility] History Medical History: Reports:: Atrial Fibrillation, Gastroesophageal Reflux Disease( GERD), Hyperlipidemia, Hypertension Denies:: Cancer, Diabetes Mellitus Type 1, Diabetes Mellitus Type 2, MRSA Other Medical History: Reports: Arthritis Other Surgeries: Yes: Colonoscopy, Colon Resection, Hernia Repair, Hysterectomy- Partial, Thyroidectomy Amputation: No Fractures: Yes - *Social History Educational Level: Completed High School Smoking Status: Never smoker Tobacco Type: cigarettes Alcohol Intake: never Substance Use Type: denies use Occupational Status: retired Housing: house Household Members: none - Psychiatric History Expresses thoughts of harming self/others: None Suicide Plan Description: No Plan *Family Hx:: Cancer, Diabetes, Heart Attack, Hyperlipidemia, Hypertension, Stroke Meds Home Medications Medication Instructions Recorded Confirmed Type aspirin 81 mg tablet,delayed 81 mg PO DAILY 09/17/17 12/17/17 History release calcium carbonate 600 mg calcium 600 mg PO ONCE tab 09/17/17 12/17/17 History (1,500 mg) tablet hydralazine 50 mg tablet 75 mg PO TID 09/17/17 12/17/17 History omeprazole 40 mg capsule,delayed 40 mg PO DAILY 09/17/17 12/17/17 History release polyethylene glycol 3350 17 17 g PO DAILY 09/17/17 12/17/17 History gram/dose oral powder potassium chloride ER 10 mEq 10 meq PO TID 09/17/17 12/17/17 History tablet,extended release pravastatin 40 mg tablet 40 mg PO HS 09/17/17 12/17/17 History warfarin 3 mg tablet 1.5 mg PO MOFR 09/17/17 12/17/17 History Amiodarone HCl [Amiodarone 200mg 200 mg PO DAILY 12/17/17 12/17/17 History Tab] Bisoprolol Fumarate [Zebeta 5mg 5 mg PO DAILY 12/17/17 12/17/17 History tablet] Bumetanide 2 mg PO DAILY 12/17/17 12/17/17 History Isosorbide Mononitrate [Isosorbide 120 mg PO DAILY 12/17/17 12/17/17 History Mononitrate ER] Tramadol HCl [Tramadol ER 100mg 100 mg PO DAILY 12/17/17 12/17/17 History Tab] Warfarin Sodium [Warfarin Sodium] 3 mg PO SUTUWETHSA 12/17/17 12/17/17 History Allergies Allergy/AdvReac Type Severity Reaction Status Date / Time cephalexin [From KEFLEX] Allergy Mild Verified 12/18/17 14:09 ciprofloxacin [CIPROFLOXACIN] Allergy Mild Verified 12/18/17 14:09 Sulfa (Sulfonamide Allergy Mild Verified 12/18/17 14:09 Antibiotics) [SULFA (SULFONAMIDE ANTIBIOTICS)] Review of Systems - Constitutional Reports fatigue - *Cardiovascular Denies chest pain, Denies chest pain at rest, Denies shortness of breath - *Respiratory Denies chest congestion, Denies cough, Denies shortness of breath, Denies shortness of breath with activity, Denies stridor - *Gastrointestinal Denies abdominal pain - *Musculoskeletal Reports abnormal walking, Reports joint swelling - *Neurologic Reports abnormal walking, Denies dizziness Exam Vital signs and Labs for Last 24 Hours: Temp Pulse Resp BP Pulse Ox 98.1 F 54 L 18 121/49 93 L 12/19/17 08:00 12/19/17 08:00 12/19/17 08:00 12/19/17 08:00 12/19/17 08:00 I & O for Last 24 hours: Intake & Output 12/16/17 12/17/17 12/18/17 12/19/17 23:59 23:59 23:59 23:59 Intake Total 840 / 2040 480 / 480 Output Total 1000 / 2200 500 / 500 Balance -160 / -160 -20 / -20 - Constitutional no acute distress, obese, cooperative - *Routine Neck Exam Present: supple, full ROM, normal carotid upstroke, trachea midline. Absent: JVD, carotid bruit - *Routine Respiratory Exam Present: CTA bilaterally. Absent: rhonchi, stridor, wheezes, crackles - *Routine Cardiovascular Exam Present: RRR, Normal S1, Normal S2. Absent: murmur, gallop Comments: History of Atrial fib. Currently remains in Sinus rhythm - *Routine Abdominal Exam Present: soft. Absent: distended, guarding - *Routine Extremities Exam Present: edema, full ROM, pulses intact. Absent: cyanosis, clubbing - *Routine Neurological Exam Present: alert, oriented X3, CN II-XII intact, moving all extremities Assessment and Plan (1) Chronic atrial fibrillation Current visit: No Status: Chronic Category: Medical Code(s): I48.2 - Chronic atrial fibrillation (2) Traumatic hematoma of left knee Current visit: No Status: Acute Qualifiers: Encounter type: initial encounter Qualified Code(s): S80.02XA - Contusion of left knee, initial encounter Category: Medical Code(s): S80.02XA - Contusion of left knee, initial encounter (3) Hemarthrosis Current visit: Yes Status: Acute Category: Medical Code(s): M25.00 - Hemarthrosis, unspecified joint (4) Fall with injury Current visit: No Status: Acute Qualifiers: Encounter type: initial encounter Qualified Code(s): W19.XXXA - Unspecified fall, initial encounter Category: Medical Code(s): W19.XXXA - Unspecified fall, initial encounter (5) Left knee pain Current visit: No Status: Acute Qualifiers: Chronicity: acute Qualified Code(s): M25.562 - Pain in left knee Category: Medical Code(s): M25.562 - Pain in left knee (6) Anticoagulated by anticoagulation treatment Current visit: No Status: Chronic Category: Medical Code(s): Z79.01 - intermodal dispatcher (current) use of anticoagulants (7) Coronary artery disease Current visit: Yes Status: Acute Category: Medical Code(s): I25.10 - Atherosclerotic heart disease of [place] coronary artery without angina pectoris - Assessment and plan all Dx Assessment and Plan for all problems:: Plan: 1. From Cardiac standpoint, pt may stop Coumadin. Due to frequency of falls. Pt remains in sinus rhythm. 2. Continue Amiodarone to maintain sinus rhythm. Recent chest xray in September,. No evidence of fibrosis. No need to repeat at this time. 3. Obtain Lipid, liver and Thyroid panel. 4. Continue current medication regimen. 5. Cardiology follow up in clinic in 2-3 weeks.
[2017-12-19 15:50] LABS: Albumin Level 2.8 gm/dL (3.4-5.0); Bilirubin,Direct 0.6 mg/dL (0.0-0.2); Bilirubin,Total 1.1 mg/dL (0.2-1.0); Chol/HDL Ratio 2.2 (1-3.5); Free Thyroxine Index 4.8 ug/dL (5.93-13.13); T4 (Thyroxine) 13.4 ug/dl (4.7-13.3); Thyroid Stimulating Hormone 1.29 uIU/ml (0.358-3.740); Total Protein,Serum 5.9 gm/dL (6.4-8.2)
--- NOTE | 2017-12-20 08:51 | Progress Note ---
Internal Medicine - PN: Subj *Date: 12/20/17 *Time: 08:48 Exam Vital signs and Labs for Last 24 Hours: Temp Pulse Resp BP Pulse Ox 98.8 F 56 L 22 153/51 92 L 12/20/17 07:34 12/20/17 07:34 12/20/17 07:34 12/20/17 07:34 12/20/17 07:34 Laboratory Results - last 24 hr 12/19/17 15:23: Total Bilirubin 1.1 H, Direct Bilirubin 0.6 H, AST 31 D, ALT 23 , Alkaline Phosphatase 94, Total Protein 5.9 L, Albumin 2.8 L, Triglycerides 93 , Cholesterol 100 L, LDL Cholesterol 35, VLDL Cholesterol 19, HDL Cholesterol 46 , Cholesterol/HDL Ratio 2.2, TSH 1.29 D, Free T4 Index 4.8 L, Thyroxine (T4) 13.4 H, T3 Uptake 36 I & O for Last 24 hours: Intake & Output 12/17/17 12/18/17 12/19/17 12/20/17 11:59 11:59 11:59 11:59 Intake Total 1320 / 1320 480 / 480 Output Total 1500 / 1500 1600 / 1600 Balance -180 / -180 -1120 / -1120 - Constitutional no acute distress - *Routine HEENT Exam Head: Present: normocephalic Eye: Present: PERRL ENT: Present: mucous membranes moist - *Routine Neck Exam Present: full ROM - *Routine Respiratory Exam Present: CTA bilaterally - *Routine Cardiovascular Exam Present: RRR - *Routine Abdominal Exam Present: soft, normoactive bowel sounds - Routine Back/Spine/Pelvis Exam Back/Spine: Present: full ROM - *Routine Skin Exam Comments: Bruising noted to bilateral legs - *Routine Neurological Exam Present: alert, oriented X3, CN II-XII intact - Routine Psychiatric Exam Present: normal affect, normal thought process - Detailed Lower Extremity Exam Knee: Bilateral swelling (brace noted), Bilateral tenderness Lower leg: Bilateral swelling, Bilateral tenderness (Bruising noted) Assessment and Plan (1) Chronic atrial fibrillation Current visit: No Status: Chronic Category: Medical Code(s): I48.2 - Chronic atrial fibrillation (2) Traumatic hematoma of left knee Current visit: No Status: Acute Qualifiers: Encounter type: initial encounter Qualified Code(s): S80.02XA - Contusion of left knee, initial encounter Category: Medical Code(s): S80.02XA - Contusion of left knee, initial encounter - Assessment and plan all Dx Assessment and Plan for all problems:: Patient states she was up this morning to the bedside commode with a decrease amount of pain but has not slept all night states the Demerol is making her feel more anxious. Possible discharge tomorrow for rehab
--- NOTE | 2017-12-20 09:09 | Progress Note ---
Subjective Date: 12/20/17 Time: 08:30 Principal diagnosis: Bursal effusion/hematoma left knee Interval history: 77 year old while female admitted for Hemarthosis. Pt has known history of Atrial fibrillation and Coronary Artery disease. Pt states she is feeling better but continues to have pain of the left knee. Pt denies chest pain and shortness of breath. Pt had been taking Coumadin and Amiodarone for Atrial fibrillation. Coumadin was stopped yesterday due to the hemarthosis of the left knee. Pt remains on Amiodarone to maintain sinus rhythm. EKG was performed this am. EKG revealed Sinus bradycardia at rate of 53bpm. Amiodarone will be continued. Exam Vital signs and Labs for Last 24 Hours: Temp Pulse Resp BP Pulse Ox 98.8 F 56 L 22 153/51 92 L 12/20/17 07:34 12/20/17 07:34 12/20/17 07:34 12/20/17 07:34 12/20/17 07:34 Laboratory Results - last 24 hr 12/19/17 15:23: Total Bilirubin 1.1 H, Direct Bilirubin 0.6 H, AST 31 D, ALT 23 , Alkaline Phosphatase 94, Total Protein 5.9 L, Albumin 2.8 L, Triglycerides 93 , Cholesterol 100 L, LDL Cholesterol 35, VLDL Cholesterol 19, HDL Cholesterol 46 , Cholesterol/HDL Ratio 2.2, TSH 1.29 D, Free T4 Index 4.8 L, Thyroxine (T4) 13.4 H, T3 Uptake 36 I & O for Last 24 hours: Intake & Output 12/17/17 12/18/17 12/19/17 12/20/17 23:59 23:59 23:59 23:59 Intake Total 840 / 2040 960 / 960 Output Total 1000 / 2200 1500 / 1500 600 / 600 Balance -160 / -160 -540 / -540 -600 / -600 - Constitutional no acute distress, obese, cooperative - *Routine Neck Exam Present: supple, full ROM, normal carotid upstroke. Absent: JVD - *Routine Respiratory Exam Present: CTA bilaterally. Absent: rhonchi, stridor, wheezes, crackles - *Routine Cardiovascular Exam Present: RRR, Normal S1, Normal S2, bradycardia. Absent: murmur, gallop - *Routine Abdominal Exam Present: soft, normoactive bowel sounds. Absent: guarding - *Routine Extremities Exam Absent: cyanosis Comments: bruising of the left knee - *Routine Neurological Exam Present: alert, oriented X3, CN II-XII intact, moving all extremities Progress Note: A&P (1) Chronic atrial fibrillation Status: Chronic Current Visit: No (2) Traumatic hematoma of left knee Status: Acute Current Visit: No (3) Coronary artery disease Status: Chronic Current Visit: Yes (4) Hemarthrosis Status: Acute Current Visit: Yes (5) Left knee pain Status: Acute Current Visit: No (6) Anticoagulated by anticoagulation treatment Status: Chronic Current Visit: No Assessment and Plan for All Diagnoses:: Plan: 1. Obtain EKG: EKG revealed Sinus Bradycardia with rate of 53bpm. 2. Continue Amiodarone to maintain sinus rhythm. 3. Continue current medication regimen. 4. Cardiology follow up in 2-3 weeks.
[2017-12-21 06:52] LABS: Basophils % 0.2 % (0.1-2.0); Eosinophils # 0.1 K/mm3 (0.0-0.4); Eosinophils % 0.8 % (0.1-12.0); Lymphocytes # 0.6 K/mm3 (0.7-4.5); Lymphocytes % 6.9 K/mm3 (10-50); Mean Corpuscular HGB Conc 28.7 g/dL (31.8-35.4); Mean Corpuscular Hemoglobin 25.7 pg (27.0-31.2); Mean Corpuscular Volume 89.4 fl (81-99); Mean Platelet Volume 7.9 fl (7.4-10.4); Monocytes # 0.7 K/mm3 (0.1-1.0); Monocytes % 8.4 % (1.7-9.3); Neutrophils # 7.2 K/mm3 (1.8-7.8); Neutrophils % 83.6 % (37.0-80.0); Platelet Count 413 K/mm3 (142-424); Red Blood Count 2.67 M/mm3 (4.20-5.40); White Blood Count 8.6 K/mm3 (4.8-10.8)
[2017-12-21 06:58] LABS: Hematocrit 23.9 % (37.0-47.0); Hemoglobin 6.9 g/dL (12.2-16.2)
[2017-12-21 06:59] LABS: INR 1.41 (0.9-1.1); Prothrombin Time 15.3 seconds (9.4-11.8)
[2017-12-21 07:04] LABS: Albumin Level 2.9 gm/dL (3.4-5.0); Albumin/Globulin Ratio 0.9 (1.1-1.8); Anion Gap 11.2 mEq/L (5-15); Bilirubin,Total 1.4 mg/dL (0.2-1.0); Calcium 8.5 mg/dL (8.5-10.1); Globulin 3.1 gm/dl (1.3-3.2); Potassium 5.2 mmoL/L (3.5-5.1)
--- NOTE | 2017-12-21 09:53 | Progress Note ---
Internal Medicine - PN: Subj *Date: 12/21/17 *Time: 09:49 Exam Vital signs and Labs for Last 24 Hours: Temp Pulse Resp BP Pulse Ox 98.0 F 57 L 18 103/41 93 L 12/21/17 08:00 12/21/17 08:00 12/21/17 08:00 12/21/17 08:00 12/21/17 08:00 Laboratory Results - last 24 hr 12/21/17 06:22: WBC 8.6, RBC 2.67 L, Hgb 6.9 L*, Hct 23.9 L*, MCV 89.4, MCH 25.7 L, MCHC 28.7 L, RDW 17.0, Plt Count 413 D, MPV 7.9, Neut % (Auto) 83.6 H, Lymph % (Auto) 6.9 L, [place] % (Auto) 8.4, Eos % (Auto) 0.8, Baso % (Auto) 0.2, Neut # (Auto) 7.2, Lymph # (Auto) 0.6 L, [place] # (Auto) 0.7, Eos # (Auto) 0.1, Baso # (Auto) 0.0 12/21/17 06:22: PT 15.3 H, INR 1.41 H 12/21/17 06:22: Sodium 137, Potassium 5.2 H, Chloride 104, Carbon Dioxide 27, Anion Gap 11.2, BUN 35 H, Creatinine 1.81 H, Estimated Creat Clear 29, Estimated GFR 27 L, Est GFR ( Amer) 33 L, Glucose 111 H, Calcium 8.5, Total Bilirubin 1.4 H, AST 36, ALT 27, Alkaline Phosphatase 102, Total Protein 6.0 L, Albumin 2.9 L, Globulin 3.1, Albumin/Globulin Ratio 0.9 L I & O for Last 24 hours: Intake & Output 12/18/17 12/19/17 12/20/17 12/21/17 11:59 11:59 11:59 11:59 Intake Total 1320 / 1320 480 / 480 260 / 260 Output Total 1500 / 1500 1600 / 1600 2200 / 2200 Balance -180 / -180 -1120 / -1120 -1940 / -1940 - Constitutional no acute distress - *Routine HEENT Exam Head: Present: normocephalic Eye: Present: PERRL ENT: Present: mucous membranes moist - *Routine Neck Exam Present: full ROM - *Routine Respiratory Exam Present: CTA bilaterally - *Routine Cardiovascular Exam Present: RRR - *Routine Abdominal Exam Present: soft, normoactive bowel sounds - *Routine Extremities Exam Present: pulses intact Comments: Seen noted to bilateral extremities Left knee swollen - *Routine Skin Exam Comments: Using noted to bilateral lower extremity - *Routine Neurological Exam Present: alert, oriented X3, CN II-XII intact - Routine Psychiatric Exam Present: normal affect, normal thought process Assessment and Plan (1) Chronic atrial fibrillation Current visit: No Status: Chronic Category: Medical Code(s): I48.2 - Chronic atrial fibrillation (2) Traumatic hematoma of left knee Current visit: No Status: Acute Qualifiers: Encounter type: initial encounter Qualified Code(s): S80.02XA - Contusion of left knee, initial encounter Category: Medical Code(s): S80.02XA - Contusion of left knee, initial encounter (3) Coronary artery disease Current visit: Yes Status: Chronic Category: Medical Code(s): I25.10 - Atherosclerotic heart disease of [place] coronary artery without angina pectoris (4) Hemarthrosis Current visit: Yes Status: Acute Category: Medical Code(s): M25.00 - Hemarthrosis, unspecified joint (5) Left knee pain Current visit: No Status: Acute Qualifiers: Chronicity: acute Qualified Code(s): M25.562 - Pain in left knee Category: Medical Code(s): M25.562 - Pain in left knee (6) Anticoagulated by anticoagulation treatment Current visit: No Status: Chronic Category: Medical Code(s): Z79.01 - termite exterminator helper (current) use of anticoagulants - Assessment and plan all Dx Assessment and Plan for all problems:: Has a low H&H but refuses blood transfusion due to being a Jehovah witness We will repeat H&H at 2:00 We will hold on transfer to [facility] for rehab
--- NOTE | 2017-12-21 12:41 | Progress Note ---
Subjective Date: 12/21/17 (n) Time: 12:40 Principal diagnosis: Bursal effusion/hematoma left knee Interval history: Patient is seen today in follow-up. The hematoma appears to be improving and resolving a bit. Less ecchymosis. Patient's able to bear weight and move the knee now. Appears to be fluctuance in the bursal fluid consistent with a resolving hematoma. No evidence of infection or other complications. Limb is appropriately vascularized. Capillary refill around 2 seconds. Range of motion and stability not checked secondary to pain. Orthopedic standpoint, I will sign off the case. I will be obviously happy to see the patient at any time as needed. I think she can be weightbearing as tolerated. I doubt she will need any aspiration of the knee as this will slowly self resolve. PN: Obj Ex Vital signs: Temp Pulse Resp BP Pulse Ox 99.5 F 54 L 16 119/40 91 L 12/21/17 12:00 12/21/17 12:00 12/21/17 12:00 12/21/17 12:00 12/21/17 12:00 - Urinary Catheter Management Mabry Cath placed during this visit: yes Urethral indwelling: Yes Reason for continuing: Other continuation reason Insertion date: 12/17/17 Insertion time: 14:34 Progress Note: A&P (1) Chronic atrial fibrillation Status: Chronic Current Visit: No (2) Traumatic hematoma of left knee Status: Acute Current Visit: No (3) Coronary artery disease Status: Chronic Current Visit: Yes (4) Hemarthrosis Status: Acute Current Visit: Yes (5) Left knee pain Status: Acute Current Visit: No (6) Anticoagulated by anticoagulation treatment Status: Chronic Current Visit: No
[2017-12-21 14:14] LABS: Hematocrit 23.6 % (37.0-47.0); Hemoglobin 6.7 g/dL (12.2-16.2)
[2017-12-22 07:08] LABS: Basophils % 0.4 % (0.1-2.0); Eosinophils # 0.1 K/mm3 (0.0-0.4); Eosinophils % 1.6 % (0.1-12.0); Lymphocytes # 0.5 K/mm3 (0.7-4.5); Lymphocytes % 8.8 K/mm3 (10-50); Mean Corpuscular HGB Conc 28.6 g/dL (31.8-35.4); Mean Corpuscular Hemoglobin 25.6 pg (27.0-31.2); Mean Corpuscular Volume 89.6 fl (81-99); Mean Platelet Volume 7.8 fl (7.4-10.4); Monocytes # 0.5 K/mm3 (0.1-1.0); Monocytes % 8.3 % (1.7-9.3); Neutrophils # 4.9 K/mm3 (1.8-7.8); Neutrophils % 80.9 % (37.0-80.0); Platelet Count 397 K/mm3 (142-424); Red Blood Count 2.56 M/mm3 (4.20-5.40); Red Cell Distribution Width 16.7 % (11.5-17.5); White Blood Count 6.1 K/mm3 (4.8-10.8)
[2017-12-22 07:19] LABS: Albumin Level 2.8 gm/dL (3.4-5.0); Albumin/Globulin Ratio 0.9 (1.1-1.8); Anion Gap 10.4 mEq/L (5-15); Calcium 8.5 mg/dL (8.5-10.1); Potassium 4.4 mmoL/L (3.5-5.1); Total Protein,Serum 5.8 gm/dL (6.4-8.2)
[2017-12-22 07:23] LABS: Hemoglobin 6.6 g/dL (12.2-16.2)
--- NOTE | 2017-12-22 11:29 | Progress Note ---
Internal Medicine - PN: Subj *Date: 12/22/17 *Time: 11:25 Interval history: H&H remains low this morning. Patient denies having black stool or melena stool. Patient still refusing blood or EPO due to being Yazidism but is willing to take to b12 injection she says she has chronic low B12. Patient states she feels fine she has no lightheadedness or dizziness. Patient states she has been low on blood before and it has came back on its own. Exam Vital signs and Labs for Last 24 Hours: Temp Pulse Resp BP Pulse Ox 98.5 F 51 L 18 108/50 91 L 12/22/17 08:00 12/22/17 08:00 12/22/17 08:00 12/22/17 08:00 12/22/17 08:00 Laboratory Results - last 24 hr 12/21/17 14:02: Hgb 6.7 L*, Hct 23.6 L* 12/22/17 06:26: WBC 6.1 D, RBC 2.56 L, Hgb 6.6 L*, Hct 23.0 L*, MCV 89.6, MCH 25.6 L, MCHC 28.6 L, RDW 16.7, Plt Count 397, MPV 7.8, Neut % (Auto) 80.9 H, Lymph % (Auto) 8.8 L, [place] % (Auto) 8.3, Eos % (Auto) 1.6, Baso % (Auto) 0.4, Neut # (Auto) 4.9, Lymph # (Auto) 0.5 L, [place] # (Auto) 0.5, Eos # (Auto) 0.1, Baso # (Auto) 0.0 12/22/17 06:26: Sodium 136, Potassium 4.4, Chloride 102, Carbon Dioxide 28, Anion Gap 10.4, BUN 41 H, Creatinine 1.72 H, Estimated Creat Clear 31, Estimated GFR 29 L, Est GFR ( Amer) 35 L, Glucose 109 H, Calcium 8.5, Total Bilirubin 1.0, AST 34, ALT 29, Alkaline Phosphatase 100, Total Protein 5.8 L, Albumin 2.8 L, Globulin 3.0, Albumin/Globulin Ratio 0.9 L I & O for Last 24 hours: Intake & Output 12/19/17 12/20/17 12/21/17 04/15/18 11:59 11:59 11:59 11:59 Intake Total 1320 / 1320 480 / 480 260 / 260 Output Total 1500 / 1500 1600 / 1600 2200 / 2200 900 / 900 Balance -180 / -180 -1120 / -1120 -1940 / -1940 -900 / -900 - Constitutional no acute distress - *Routine HEENT Exam Head: Present: normocephalic Eye: Present: PERRL ENT: Present: mucous membranes moist - *Routine Neck Exam Present: supple, full ROM - *Routine Respiratory Exam Present: CTA bilaterally - *Routine Cardiovascular Exam Present: RRR - *Routine Abdominal Exam Present: soft, normoactive bowel sounds - *Routine Extremities Exam Present: edema, full ROM Comments: Bruising noted to bilateral lower extremities left leg swollen but patient is able to move - *Routine Neurological Exam Present: alert, oriented X3, CN II-XII intact - Routine Psychiatric Exam Present: normal affect, normal thought process Assessment and Plan (1) Chronic atrial fibrillation Current visit: No Status: Chronic Category: Medical Code(s): I48.2 - Chronic atrial fibrillation (2) Traumatic hematoma of left knee Current visit: No Status: Acute Qualifiers: Encounter type: initial encounter Qualified Code(s): S80.02XA - Contusion of left knee, initial encounter Category: Medical Code(s): S80.02XA - Contusion of left knee, initial encounter (3) Coronary artery disease Current visit: Yes Status: Chronic Category: Medical Code(s): I25.10 - Atherosclerotic heart disease of [place] coronary artery without angina pectoris (4) Hemarthrosis Current visit: Yes Status: Acute Category: Medical Code(s): M25.00 - Hemarthrosis, unspecified joint (5) Left knee pain Current visit: No Status: Acute Qualifiers: Chronicity: acute Qualified Code(s): M25.562 - Pain in left knee Category: Medical Code(s): M25.562 - Pain in left knee (6) Anticoagulated by anticoagulation treatment Current visit: No Status: Chronic Category: Medical Code(s): Z79.01 - MCC (current) use of anticoagulants - Assessment and plan all Dx Assessment and Plan for all problems:: We will give B12 injection today and monitor H&H check stool for occult blood
[2017-12-23 06:28] LABS: Basophils % 0.4 % (0.1-2.0); Eosinophils # 0.1 K/mm3 (0.0-0.4); Eosinophils % 1.7 % (0.1-12.0); Lymphocytes # 0.5 K/mm3 (0.7-4.5); Lymphocytes % 8.7 K/mm3 (10-50); Mean Corpuscular HGB Conc 28.5 g/dL (31.8-35.4); Mean Corpuscular Hemoglobin 25.4 pg (27.0-31.2); Mean Corpuscular Volume 89.1 fl (81-99); Mean Platelet Volume 7.7 fl (7.4-10.4); Monocytes # 0.6 K/mm3 (0.1-1.0); Monocytes % 10.1 % (1.7-9.3); Neutrophils # 4.5 K/mm3 (1.8-7.8); Neutrophils % 79.1 % (37.0-80.0); Platelet Count 393 K/mm3 (142-424); Red Blood Count 2.67 M/mm3 (4.20-5.40); Red Cell Distribution Width 16.6 % (11.5-17.5); White Blood Count 5.7 K/mm3 (4.8-10.8)
[2017-12-23 06:32] LABS: Potassium 4.8 mmoL/L (3.5-5.1)
[2017-12-23 06:40] LABS: Albumin Level 2.8 gm/dL (3.4-5.0); Anion Gap 12.8 mEq/L (5-15); Bilirubin,Total 0.9 mg/dL (0.2-1.0); Calcium 8.5 mg/dL (8.5-10.1); Globulin 2.9 gm/dl (1.3-3.2); Total Protein,Serum 5.7 gm/dL (6.4-8.2)
[2017-12-23 07:18] LABS: Hemoglobin 6.8 g/dL (12.2-16.2)
[2017-12-23 07:19] LABS: Hematocrit 23.8 % (37.0-47.0)
--- NOTE | 2017-12-23 11:43 | Discharge Summary ---
General - General Admission date: 12/17/17 Discharge date: 12/23/17 HPI HPI: The patient is a 77-year-old female who is currently on Coumadin for a history of atrial fibrillation. She has a cardiac history positive for myocardial infarction and stent placement. She reports she fell on December 05 and incurred swelling and bruising involving her left knee area. This progressed somewhat in size and pain however the patient was able to continue walking. She reports that the pain increased enough to prompt her to visit the emergency department where she was evaluated and x-rays taken on December 09. No effusion was noted nor was fracture or loose body noted at that time. There was diffuse soft tissue swelling present. The patient reports that last night she noted the leg to begin to swell again and she noted increased swelling throughout the night. This morning, she noted the inability to walk secondary to pain and was brought to the emergency department by ambulance. I was called by the emergency department staff and consulted by telephone. The patient was admitted to Dr. Gentile and a polar pack and knee immobilizer applied. The patient reportedly responded better to Demerol for pain control then morphine. Examination shows the patient to be alert and cooperative and in no apparent distress. She states she feels much better with the polar pack and the immobilizer in place. Both are removed for examination of the knee. Range of motion is not tested secondary to known inflammation and pain. X-rays show no evidence of fracture however there is a large infra-patella fusion consistent with hematoma/bursal fluid. Given the history, this is much more likely to be a collection of blood. Exam shows ecchymosis involving the skin. I do not detect distinct areas of fluctuance and there is some rebound firmness suggestive that there may be a clot in the bursa itself. Although the skin is quite ecchymotic, no ulcerations or deficits are noted. The toes are warm and dry and capillary refill appears less than 2 seconds. There are older ecchymotic changes in the ankle and toes which are nontender. In the pretibial area, exam shows inflammatory tenderness. In the region of the knee itself the tenderness is much more acute. ASSESSMENT the patient has a large bursal fluid collection in the infrapatellar region which is consistent with bleeding. At present, no distinct pocket of fluid suitable for aspiration is noted. [Note is made that the patient is not interested in aspiration] There is no cellulitis or inflammatory changes suggestive of an infection RECOMMENDATIONS reapplied the polar pack and the knee immobilizer per the patient's request. The knee immobilizer and polar pack are for comfort only. With the patient's increased BUN and creatinine, I will not recommend NSAIDs at this point although these may be a consideration if approved by her attending physician. Noted pharmacies recommendation for Lovenox 75 mg twice daily. Again I will defer to Dr. Gentile's opinion on the necessity of this for her atrial fibrillation, however from an orthopedic standpoint, minimizing anticoagulants at this stage will likely help further progression or bleeding into the bursa and subcutaneous tissues. I will recheck her in the morning and if swelling is increased, I will speak to radiology and see if they would be able to ultrasound this area and possibly aspirate any liquefied hematoma. She also may be a candidate for mobilization using negative polarity techniques offered by the lymphedema clinic. Will follow. Hospital Course Hospital Course: pt with slow but steady improvement in her pain with iv pain meds and immbolization with ice - she was seen by ortho and therapy and she has had low but stable hgb and sed to her pentecostal has refused transfusion - she has stable but dec renal status - she will be d/c to [facility] atient is seen today in follow-up. The hematoma appears to be improving and resolving a bit. Less ecchymosis. Patient's able to bear weight and move the knee now. Appears to be fluctuance in the bursal fluid consistent with a resolving hematoma. No evidence of infection or other complications. Limb is appropriately vascularized. Capillary refill around 2 seconds. Range of motion and stability not checked secondary to pain. Orthopedic standpoint, I will sign off the case. I will be obviously happy to see the patient at any time as needed. I think she can be weightbearing as tolerated. I doubt she will need any aspiration of the knee as this will slowly self resolve. year old white female admitted to facility for increase pain and swelling of her left knee due to a fall 2 weeks ago. Pt has history of Atrial fibrillation and is currently on Coumadin therapy. Pt has positive cardiac history for myocardial infarction and stent placement to the proximal mid LAD (02/2017). There is also significant history of Hypertension. Pt stated that she was been having multiple falls in the past two weeks. Pt is very vague on her description of activity prior to the falls. Pt is unsure if she has dizziness or loss of balance prior to these falls. Pt reports on December 05, 2017, she had fallen causing injury to her left knee. She reports increase swelling, bruising and pain of the left knee causing her difficulty in walking and performing her daily activities. Pt was evaluated in the Emergency department one day ago for this increase pain and swelling of her left knee. Radiology films were taken revealed no effusion or fracture to the left knee. There was diffuse soft tissue swelling present. X-ray, however, did show a large infra- patella fusion consistent with hematoma/bursal fluid. Pt is alert and oriented appropriately. Pt complains of pain of the left knee. PCP Dr. Gentile requested a Cardiology consult for evaluation of her anti-coagulant therapy due to her atrial fibrillation. EKg revealed sinus rhythm with premature atrial complexes with heart rate of 63bpm. Pt remains in sinus rhythm. Pt denies chest pain or shortness of breath. From a cardiology standpoint, stopping the anticoagulant ( Coumadin) at this time would be beneficial for the patient and decrease her risk of further bleeding. Case was discussed with Dr. Adrian Davis Objective Vital signs: Temp Pulse Resp BP Pulse Ox 98.6 F 60 18 141/47 100 12/23/17 07:37 12/23/17 07:37 12/23/17 10:15 12/23/17 07:37 12/23/17 07:37 no acute distress - *Routine HEENT Exam Head: Present: normocephalic Eye: Present: EOMI, PERRL ENT: Present: mucous membranes dry - *Routine Neck Exam Absent: JVD - *Routine Respiratory Exam Absent: respiratory distress - *Routine Cardiovascular Exam Present: RRR - *Routine Abdominal Exam Present: soft. Absent: tenderness, distended - *Routine Extremities Exam Comments: lt knee in knee immbolizer - *Routine Skin Exam Present: ecchymosis - *Routine Neurological Exam Present: alert, CN II-XII intact - Routine Psychiatric Exam Present: normal affect Results Labs on day of discharge: Labs from last 24 hours 12/23/17 12/23/17 12/22/17 06:17 06:17 21:13 WBC 5.7 RBC 2.67 L Hgb 6.8 L* Hct 23.8 L* MCV 89.1 MCH 25.4 L MCHC 28.5 L RDW 16.6 Plt Count 393 MPV 7.7 Neut % (Auto) 79.1 Lymph % (Auto) 8.7 L [place] % (Auto) 10.1 H Eos % (Auto) 1.7 Baso % (Auto) 0.4 Neut # (Auto) 4.5 Lymph # (Auto) 0.5 L [place] # (Auto) 0.6 Eos # (Auto) 0.1 Baso # (Auto) 0.0 Sodium 136 Potassium 4.8 Chloride 102 Carbon Dioxide 26 Anion Gap 12.8 BUN 42 H Creatinine 1.73 H Estimated Creat Clear 30 Estimated GFR 28 L Est GFR ( Amer) 34 L Glucose 109 H Calcium 8.5 Total Bilirubin 0.9 AST 35 ALT 28 Alkaline Phosphatase 101 Total Protein 5.7 L Albumin 2.8 L Globulin 2.9 Albumin/Globulin Ratio 1.0 L Stool Occult Blood Negative DS: Diagnosis - Discharge Diagnosis (1) Chronic atrial fibrillation Status: Chronic (2) Traumatic hematoma of left knee Status: Acute (3) Anemia Status: Acute (4) Renal insufficiency Status: Acute Discharge Plan - Patient Discharge Instructions ACTIVITY: Continue current activity (none) DIET: continue same diet - Follow up Plan Disposition: [facility] Home Medications: Home Medications Medication Instructions Recorded Confirmed Type aspirin 81 mg tablet,delayed 81 mg PO DAILY 09/17/17 12/17/17 History release calcium carbonate 600 mg calcium 600 mg PO ONCE tab 09/17/17 12/17/17 History (1,500 mg) tablet hydralazine 50 mg tablet 75 mg PO TID 09/17/17 12/17/17 History omeprazole 40 mg capsule,delayed 40 mg PO DAILY 09/17/17 12/17/17 History release polyethylene glycol 3350 17 17 g PO DAILY 09/17/17 12/17/17 History gram/dose oral powder potassium chloride ER 10 mEq 10 meq PO TID 09/17/17 12/17/17 History tablet,extended release pravastatin 40 mg tablet 40 mg PO HS 09/17/17 12/17/17 History warfarin 3 mg tablet 1.5 mg PO MOFR 09/17/17 12/17/17 History Amiodarone HCl [Amiodarone 200mg 200 mg PO DAILY 12/17/17 12/17/17 History Tab] Bisoprolol Fumarate [Zebeta 5mg 5 mg PO DAILY 12/17/17 12/17/17 History tablet] Bumetanide 2 mg PO DAILY 12/17/17 12/17/17 History Isosorbide Mononitrate [Isosorbide 120 mg PO DAILY 12/17/17 12/17/17 History Mononitrate ER] Tramadol HCl [Tramadol ER 100mg 100 mg PO DAILY 12/17/17 12/17/17 History Tab] Warfarin Sodium [Warfarin Sodium] 3 mg PO SUTUWETHSA 12/17/17 12/17/17 History Prescriptions/Medication Reconciliation: Continue hydralazine 50 mg tablet 75 mg PO TID pravastatin 40 mg tablet 40 mg PO HS polyethylene glycol 3350 17 gram/dose oral powder 17 g PO DAILY aspirin 81 mg tablet,delayed release 81 mg PO DAILY omeprazole 40 mg capsule,delayed release 40 mg PO DAILY calcium carbonate 600 mg calcium (1,500 mg) tablet 600 mg PO ONCE tab Isosorbide Mononitrate [Isosorbide Mononitrate ER] 120 mg PO DAILY Bisoprolol Fumarate [Zebeta 5mg tablet] 5 mg PO DAILY Amiodarone HCl [Amiodarone 200mg Tab] 200 mg PO DAILY Bumetanide 2 mg PO DAILY Discontinued potassium chloride ER 10 mEq tablet,extended release 10 meq PO TID warfarin 3 mg tablet 1.5 mg PO MOFR Tramadol HCl [Tramadol ER 100mg Tab] 100 mg PO DAILY Warfarin Sodium [Warfarin Sodium] 3 mg PO SUTUWETHSA
[2017-12-23 15:42] VITALS: BP 135/55
== END 2017-12-23 16:32 ==
LOC: ER 11:51 → 2ND 11:51
PROVIDERS: ADMIT Emergency Medicine; ATTEND Emergency Medicine

== ENCOUNTER → 2018-01-24 09:48 | Outpatient (CLI) | payer MEDICARE, OTHER, SELFPAY ==
[2018-01-24 10:33] LABS: Basophils # 0.1 K/mm3 (0-0.2); Basophils % 1.1 % (0.1-2.0); Eosinophils # 0.1 K/mm3 (0.0-0.4); Eosinophils % 1.7 % (0.1-12.0); Hematocrit 35.4 % (37.0-47.0); Lymphocytes # 0.7 K/mm3 (0.7-4.5); Lymphocytes % 12.6 K/mm3 (10-50); Mean Corpuscular HGB Conc 28.1 g/dL (31.8-35.4); Mean Corpuscular Hemoglobin 23.6 pg (27.0-31.2); Mean Corpuscular Volume 84.1 fl (81-99); Monocytes # 0.3 K/mm3 (0.1-1.0); Monocytes % 5.8 % (1.7-9.3); Neutrophils # 4.1 K/mm3 (1.8-7.8); Neutrophils % 78.8 % (37.0-80.0); Platelet Count 362 K/mm3 (142-424); Red Blood Count 4.22 M/mm3 (4.20-5.40); Red Cell Distribution Width 15.6 % (11.5-17.5); White Blood Count 5.2 K/mm3 (4.8-10.8)
[2018-01-24 11:11] LABS: Anion Gap 10.7 mEq/L (5-15); Blood Urea Nitrogen 23 mg/dL (7-18); Carbon Dioxide 31 mmol/L (21.0-32.0); Chloride 103 mmol/L (98-107); Creatinine,Serum 1.34 mg/dL (0.55-1.02); Estimated Glomerular Filt Rate 38 ml/min (>60); GFR (African American) 46 ML/MIN (>60); Glucose 93 mg/dL (74-106); Potassium 4.7 mmoL/L (3.5-5.1); Sodium 140 mmol/L (136-145)
[2018-01-31 20:09] LABS: Triiodothyronine (T3) Reverse 85.8 ng/dL (9.2-24.1)
== END ==
PROVIDERS: Visit Provider Internal Medicine Cardiovascular Disease
DX: R60.9 Edema, unspecified (principal); I25.10 Atherosclerotic heart disease of native coronary artery without angina pectoris; D64.9 Anemia, unspecified; N28.9 Disorder of kidney and ureter, unspecified
CPT/HCPCS: 36415; 80048; 84482; 85025

== ENCOUNTER 2018-03-20 10:00 | Outpatient (RCR) | payer MEDICARE, OTHER, SELFPAY | END 2018-03-20 10:01 | disposition home or self-care (01) | LOC: OT 10:00 | PROVIDERS: Family Provider Emergency Medicine; PCP Nurse Practitioner Family; Visit Provider Family Medicine | DX: S43.004D Unspecified dislocation of right shoulder joint, subsequent encounter (principal) | CPT/HCPCS: 97014; 97110; 97140; 97166; G0283 ==

== ENCOUNTER → 2018-03-20 10:40 | Outpatient (CLI) | payer MEDICARE, OTHER, SELFPAY ==
--- NOTE | 2018-03-20 10:45 | XR_ITS ---
XR shoulder RT min 2V HISTORY: Worsening pain with limited range of motion ITS.REASON: RT SHOULDER PAIN ORDERING PHYSICIAN: Karla Chiu PATIENT AGE: 77 years Comparison: None FINDINGS: There are mild osteoarthritic changes of the acromioclavicular joint with bony hypertrophy of the acromion. There is no evidence of dislocation. A defect is present along the lateral aspect of the humeral head consistent with a Hill-Sachs injury as seen on previous x-ray of 02/03/2018. IMPRESSION: 1. No evidence of dislocation. 2. Mild acromioclavicular arthropathy. 3. Hill-Sachs deformity of the proximal humerus
== END ==
PROVIDERS: PCP Family Medicine; Visit Provider Family Medicine
DX: M25.511 Pain in right shoulder (principal)
CPT/HCPCS: 73030

== ENCOUNTER 2018-07-03 11:00 | Outpatient (RCR) | payer MEDICARE, OTHER, SELFPAY ==
--- NOTE | 2018-06-17 11:41 | HMH.OTOPEV ---
OT Inpatient Evaluation Rehab OT Outpatient Eval Start: 06/17/18 11:27 Freq: Status: Active Protocol: Document 06/17/18 11:27 TFRY (Rec: 06/17/18 11:41 TFRY [id number]) Electronically Signed By Manda Pascal OT 06/17/18 11:27 Outpatient Therapy Subjective History Subjective History THIS IS A 77 YEAR OLD RIGHT HANDED FEMALE REFERRED TO OCCUPATIONAL THERAPY FOR ROTATOR CUFF TEAR OF THE RIGHT SHOULDER. PATIENT REPORTS THAT SHE FELL IN THE spring AND DISLOCATED HER SHOULDER AND WENT TO [facility] AND THEY PUT IN BACK IN. SHE THEN HAD THERAPY AFTERWARDS BUT BECAME TO PAINFUL TO CONTINUE. SHE WAS THEN SENT TO SEE DR. HAN WHO GAVE HER A CORTISON INJECTION ON 06/04/18 SHE DOES NOT WANT TO HAVE SURGERY AT THIS TIME. Chief Complaint Pain Symptom Type Ache Throb Symptoms Relieved By Rest/Positioning Symptoms Aggravated By Physical Activity Prior Functional Limitations None Current Functional Limitations None Symptom Description Activity Dependent Level of pain today (0-10) 0 Pain scale - at its best (0-10) 0 Pain scale - at its worst (0-10) 2 Shoulder/Elbow Eval Shoulder Objective Measurements Shoulder ROM Right Shoulder Abduction Active Range of 120 Motion (degrees) Shoulder Flexion Active Range of Motion 120 (degrees) Query Text: Shoulder External Rotation Active Range WFL of Motion (degrees) Shoulder Internal Rotation Active Range 20 of Motion (degrees) pain with active ROM shoulder exam right standard decreased ROM shoulder exam standard right Shoulder MMT Shoulder Abduction Strength Grade 3+ Fair+ Shoulder Extension Strength Grade 3+ Fair+ Shoulder Flexion Strength Grade 3+ Fair+ Shoulder Horizontal Abduction Strength 3+ Fair+ Grade Shoulder Horizontal Adduction Strength 3+ Fair+ Grade Shoulder External Rotation Strength 3+ Fair+ Grade Shoulder Internal Rotation Strength 3 Fair Grade Elbow Objective Measurements OT Outpatient Assessment Impairments Problems/Impairments Impaired Range of Motion Impaired Stre
== END 2018-07-03 11:01 | disposition home or self-care (01) ==
LOC: OT 11:00
PROVIDERS: Family Provider Emergency Medicine; PCP Family Medicine; Visit Provider Orthopaedic Surgery
DX: M75.101 Unspecified rotator cuff tear or rupture of right shoulder, not specified as traumatic (principal)
CPT/HCPCS: 97110; 97165

== ENCOUNTER → 2018-07-10 15:01 | Outpatient (CLI) | payer MEDICARE, OTHER, SELFPAY ==
--- NOTE | 2018-07-10 15:05 | XR_ITS ---
XR chest 2V HISTORY: Irregular heart rate ITS.REASON: amiodarone therapy ORDERING PHYSICIAN: Adrian Hernandez MD PATIENT AGE: 77 years COMPARISON: 02/03/2018 FINDINGS: Normal heart size. Umbrella filter type device is noted overlying the left aspect of the heart. No lobar consolidation or collapse. No pulmonary fibrotic changes. There are degenerative changes in the thoracic spine with mild kyphosis and mild wedging involving several mid dorsal vertebral bodies age-indeterminate. IMPRESSION: 1. No evidence of pulmonary fibrosis. 2. Umbrella filter type device overlying the left aspect of the heart 3. Thoracic kyphosis with indeterminate wedge compression changes of mid dorsal vertebral bodies
[2018-07-10 18:11] LABS: Alanine Aminotransferase 35 U/L (12-78); Albumin Level 3.6 gm/dL (3.4-5.0); Alkaline Phosphatase 110 U/L (46-116); Aspartate Amino Transferase 34 U/L (15-37); Bilirubin,Direct 0.2 mg/dL (0.0-0.2); Bilirubin,Indirect 0.4 mg/dL (0.0-0.9); Bilirubin,Total 0.6 mg/dL (0.2-1.0); Free Thyroxine Index 6.5 ug/dL (5.93-13.13); T4 (Thyroxine) 17.1 ug/dl (4.7-13.3); Thyroid Stimulating Hormone 0.83 uIU/ml (0.358-3.740); Total Protein,Serum 6.4 gm/dL (6.4-8.2); Triiodothryronine (T3) Uptake 38 % (31-39)
== END ==
PROVIDERS: PCP Family Medicine; Visit Provider Internal Medicine Cardiovascular Disease
DX: Z79.899 Other long term (current) drug therapy (principal); I48.0 Paroxysmal atrial fibrillation; I25.10 Atherosclerotic heart disease of native coronary artery without angina pectoris; I50.9 Heart failure, unspecified
CPT/HCPCS: 36415; 71046; 80076; 84436; 84443; 84479

== ENCOUNTER 2018-08-10 15:01 | Inpatient (IN) ==
--- NOTE | 2018-08-10 15:11 | Emergency Department Note ---
ED Disposition Clinical Impression: Chest pain Qualifiers: Chest pain type: precordial pain Qualified Code(s): R07.2 - Precordial pain Disposition: Still a Patient Condition on Discharge: Good - Critical Care Critical Care Time: No Attestation: On , the high probability of a clinically significant, sudden or life threatening deterioration of the following system(s) required my full and direct attention, intervention and personal management. The time I documented below is in addition to time spent performing reported procedures but includes the following listed in this critical care notation. Medical Decision Making - [place] Inquiry Pt receiving controlled substance: No Vital Signs: 08/10/18 15:01 08/10/18 15:04 08/10/18 15:47 Temperature 98.5 F Temperature Source Tympanic Pulse Rate [Left Radial] 54 L 56 L 58 L Respiratory Rate 18 Blood Pressure [Right Arm] 157/74 H 171/66 H 143/68 H Blood Pressure Mean [Right Arm] 101 101 93 Blood Pressure Source [Right Arm] Automatic Cuff Automatic Cuff Automatic Cuff Blood Pressure Position [Right Arm] Sitting Sitting Sitting 02 Sat by Pulse Oximetry 96 97 96 Oxygen Delivery Method Room Air 08/10/18 16:01 Temperature Temperature Source Pulse Rate [Left Radial] 54 L Respiratory Rate Blood Pressure [Right Arm] 138/59 L Blood Pressure Mean [Right Arm] 85 Blood Pressure Source [Right Arm] Automatic Cuff Blood Pressure Position [Right Arm] Sitting 02 Sat by Pulse Oximetry 94 L Oxygen Delivery Method - Lab Data Lab Results 08/10/18 15:10: WBC 6.7, RBC 3.99 L, Hgb 10.7 L, Hct 34.0 L, MCV 85.4, MCH 26.9 L, MCHC 31.5 L, RDW 16.6, Plt Count 259, MPV 7.2 L, Neut % (Auto) 84.3 H, Lymph % (Auto) 8.6 L, [place] % (Auto) 5.7, Eos % (Auto) 1.1, Baso % (Auto) 0.3, Neut # (Auto) 5.6, Lymph # (Auto) 0.6 L, [place] # (Auto) 0.4, Eos # (Auto) 0.1, Baso # (Auto) 0.0 08/10/18 15:10: Sodium 137, Potassium 4.5, Chloride 102, Carbon Dioxide 27, Anion Gap 12.5, BUN 27 H, Creatinine 1.54 H, Estimated Creat Clear 40, Estimated GFR 32 L, Est GFR ( Amer) 39 L, Glucose 214 H, Calcium 8.4 L, Troponin I < 0.02 Result diagrams: 08/10/18 15:10 08/10/18 15:10 Orders (Tests/Meds): ED MEDICATIONS Discontinued Medications Generic Name Dose Route Start Last Admin Trade Name Freq PRN Reason Stop Dose Admin Aspirin 243 mg 08/10/18 16:26 Aspirin 81mg Chewable Tablet PO 08/10/18 16:27 ONCE ONE ORDERS Category Date Time Status XR chest portable Stat Exams 08/10/18 15:11 Taken - Radiology Data #1 Image(s): Chest Image Reviewed: Yes I reviewed the patient's radiology image Preliminary Findings: Normal/NAD - ECG Data Tracing #1 EKG interpreted by Chapin Jacobs MD: Rhythm: sinus Rate: 61 [place]: normal Ectopy: none Conduction: normal ST Segment Changes: none T Wave Changes: none Q Waves: none No evidence of acute ischemia or injury Baseline wander present, but I consider the EKG adequate for accurate interpretation. - Physician Consults Physician Consulted: Madhuri Grubbs Time: 16:17 Reason -: Admission Comment/Response: Agrees to admit the patient to the hospital. We discussed the patient's clinical information, including history, exam, laboratory and radiology results and ED course. Per hospital procedure, I will write temporary bridge inpatient orders on the patient. Specific orders requested by the admitting physician: Serial cardiac enzymes, cardiology consult - Reevaluation(s) Time: 16:10 Reevaluation #1: Sleeping. When awakened, states that she does not know whether she has any pain. Medical Decision Narrative: Patient declined anything for pain in the emergency room. 4:25 PM: Discussed blood sugar result. Patient does not have diagnosed with diabetes. Reviewed previous blood sugar results. Last result here in January was 154. General Adult HPI - General Chief complaint: Chest Pain Stated complaint: chest pain Time Seen by Provider: 08/10/18 15:10 Mode of Arrival: Ambulatory Limitations: No Limitations Description of Symptoms (Recalled from ER Triage Doc. by RN): pt states that around 1230 she started with midsterum pain that goes into her back and down her left arm, she was sitting when this started and has been feeling nauseated for a few days. She took 3 nitro pills at home - History of Present Illness HPI narrative: Lower sternal chest pain that began about noon while at rest riding in a vehicle. It increased when she was doing laundry at a laundromat. She felt sweaty. She went home and took 3 nitroglycerin tablets. She says on the way here they seem to have kicked in and her chest pain has subsided. She had radiation down her left arm and into her back. Still has pain in her left arm. States she is chronically short of breath. No nausea or vomiting. Prior [place] 8- 10 years ago. States her pain today feels similar. She has 2 stents. One was put in last year. She has a history of atrial fibrillation. Has a watchman device. Saw Dr. Hernandez in the office on Saturday and Plavix was stopped. - Related Data Home Medications Medication Instructions Recorded Confirmed aspirin 81 mg tablet,delayed 81 mg PO DAILY 09/17/17 08/10/18 release calcium carbonate 600 mg calcium 600 mg PO ONCE tab 09/17/17 08/10/18 (1,500 mg) tablet polyethylene glycol 3350 17 17 g PO DAILY 09/17/17 08/10/18 gram/dose oral powder Amiodarone HCl [Amiodarone 200mg 200 mg PO DAILY 12/17/17 08/10/18 Tab] Isosorbide Mononitrate [Isosorbide 120 mg PO DAILY 12/17/17 08/10/18 Mononitrate ER] tramadol 50 mg tablet 50 mg PO BID tab 01/09/18 08/10/18 pantoprazole 40 mg tablet,delayed 40 mg PO DAILY 05/01/18 08/10/18 release Levothyroxine Sodium [Synthroid 50 mcg PO DAILY 08/10/18 08/10/18 50mcg (0.05mg) tab] Previous Rx's Medication Instructions Recorded pravastatin 40 mg tablet 40 mg PO HS #90 tab 02/17/18 Allergies Allergy/AdvReac Type Severity Reaction Status Date / Time cephalexin [From KEFLEX] Allergy Mild Verified 08/07/18 11:09 ciprofloxacin [CIPROFLOXACIN] Allergy Mild Verified 08/07/18 11:09 Sulfa (Sulfonamide Allergy Mild Verified 08/07/18 11:09 Antibiotics) [SULFA (SULFONAMIDE ANTIBIOTICS)] [facility] History I have reviewed the patient's past medical history: Yes Medical History: Reports:: Atrial Fibrillation, Coronary Artery Disease, Gastroesophageal Reflux Disease(GERD), Hyperlipidemia, Hypertension, Renal Insufficiency Denies:: Cancer, Diabetes Mellitus Type 1, Diabetes Mellitus Type 2, MRSA Other Medical History: Reports: Arthritis, Hypothyroidism Comment: 2 Heart Stent Other Surgeries: Yes: Colonoscopy, Colon Resection, Hernia Repair, Hysterectomy- Partial, Thyroidectomy Amputation: No Fractures: Yes Comment: HEART ATTACK, AFIB, HEART STENT X 2 - Social History Smoking Status: Never smoker Tobacco Type: cigarettes Alcohol Intake: never Alcohol Intake Frequency:: other Substance Use Type: denies use Occupational Status: retired Housing: house Household Members: none - Psychiatric History Expresses thoughts of harming self/others: None Suicide Plan Description: No Plan Family Hx:: Cancer, Diabetes, Heart Attack, Hyperlipidemia, Hypertension, Stroke ROS Obtained: Yes All systems reviewed & no additional complaints - Cardiovascular Cardiovascular: Reports chest pain, Reports diaphoresis - Respiratory Respiratory: Yes dyspnea (Chronic) - Gastrointestinal Gastrointestingal: Denies: abdominal pain, nausea, vomiting Physical Exam - General General appearance: alert, in no apparent distress - Head Head exam: atraumatic, normocephalic - Eye Eye exam: Present: normal appearance - ENT ENT exam: Present: mucous membranes moist - Neck Neck exam: Present: normal inspection, trachea midline - Chest Chest inspection: Present: normal inspection, symmetric chest wall rise - Respiratory Respiratory exam: Present: normal lung sounds bilaterally. Absent: respiratory distress - Cardiovascular Cardiovascular exam: Present: regular rate, normal rhythm, normal heart sounds - Abdominal Exam Abdominal exam: Present: soft. Absent: distention, tenderness - Extremities Exam Extremities exam: Present: full ROM. Absent: pedal edema, calf tenderness - Neurological Exam Neurological exam: Present: alert, oriented X3. Absent: motor sensory deficit - Psychiatric Psychiatric exam: Present: normal affect - Skin Skin exam: Present: warm, dry
[2018-08-10 15:25] LABS: Basophils % 0.3 % (0.1-2.0); Eosinophils # 0.1 K/mm3 (0.0-0.4); Eosinophils % 1.1 % (0.1-12.0); Hemoglobin 10.7 g/dL (12.2-16.2); Lymphocytes # 0.6 K/mm3 (0.7-4.5); Lymphocytes % 8.6 % (10-50); Mean Corpuscular HGB Conc 31.5 g/dL (31.8-35.4); Mean Corpuscular Hemoglobin 26.9 pg (27.0-31.2); Mean Corpuscular Volume 85.4 fl (81-99); Mean Platelet Volume 7.2 fl (7.4-10.4); Monocytes # 0.4 K/mm3 (0.1-1.0); Monocytes % 5.7 % (1.7-9.3); Neutrophils # 5.6 K/mm3 (1.8-7.8); Neutrophils % 84.3 % (37.0-80.0); Platelet Count 259 K/mm3 (142-424); Red Blood Count 3.99 M/mm3 (4.20-5.40); Red Cell Distribution Width 16.6 % (11.5-17.5); White Blood Count 6.7 K/mm3 (4.8-10.8)
[2018-08-10 15:36] LABS: Anion Gap 12.5 mEq/L (5-15); Blood Urea Nitrogen 27 mg/dL (7-18); Calcium 8.4 mg/dL (8.5-10.1); Carbon Dioxide 27 mmol/L (21.0-32.0); Chloride 102 mmol/L (98-107); Glucose 214 mg/dL (74-106); Potassium 4.5 mmoL/L (3.5-5.1); Sodium 137 mmol/L (136-145)
--- NOTE | 2018-08-11 07:26 | Pharmacy Consult Notes ---
[facility] Pharmacy VTE Monitoring - Patient Demographics Admission date: 08/10/18 Report Date: 08/11/18 Time: 07:25 Allergies/Adverse Reactions: Patient Allergies cephalexin [From KEFLEX] Allergy (Mild, Verified 08/07/18 11:09) ciprofloxacin [CIPROFLOXACIN] Allergy (Mild, Verified 08/07/18 11:09) Sulfa (Sulfonamide Antibiotics) [SULFA (SULFONAMIDE ANTIBIOTICS)] Allergy (Mild, Verified 08/07/18 11:09) Height: 1.6 m Weight: 67.358 kg Patient Problems: Current Active Problems Chest pain (Acute) - VTE Risk Labs: VTE Related Lab Results Hgb 10.7 g/dL (12.2-16.2) L 08/10/18 15:10 Hct 34.0 % (37.0-47.0) L 08/10/18 15:10 Plt Count 259 K/mm3 (142-424) 08/10/18 15:10 BUN 27 mg/dL (7-18) H 08/10/18 15:10 Creatinine 1.54 mg/dL (0.55-1.02) H 08/10/18 15:10 Estimated Creat Clear 40 mL/min (50-200) 08/10/18 15:10 VTE Score: 4 VTE Risk Level: Low Risk - Prophylaxis VTE Prophylaxis Ordered?: Yes Types of VTE Prophylaxis: TEDS Knee High Location of Applied Device: Bilateral Lower Extremeties - VTE Diagnosis Confirmed Treatment or plan recommended: Continue Current Treatment
--- NOTE | 2018-08-11 07:52 | Consult Report ---
History of Present Illness Consult date: 08/11/18 Requesting physician: Fernando Dhaliwal Consult reason: chest pain Chief complaint: chest pain Additional Medical History:: 1. Atrial Fibrillation a. Anti-coagulant therapy (Coumadin) discontinued after watchman device implanted b. Currently on Amiodarone 2. Essential Hypertension a. Controlled with antihypertensives 3. Coronary arteriosclerosis in [place] artery a. [place] (2017) b. Drug-eluting stent to proximal mid LAD c. Plavix discontinued 08/08/2018 4. Hyperlipidemia a. currently on Statin 5. Hemarthrosis (Left knee) 6. Falls a. Frequent falls in the past 2 weeks 7. Hypothyroidism History of present illness: 77-year-old white female with history of atrial fibrillation, status post watchman device implantation, coronary artery disease with previous [place] and coronary artery stenting in February 2017 was admitted for recurrent chest pain. Patient was seen in the office on Saturday and was feeling well. Since it had been over a year since her coronary stenting Plavix was discontinued at that time due to the patient's frequent falls history. Yesterday the patient developed onset of substernal chest discomfort with radiation to the back and left arm worsened with activity (doing her laundry) which prompted her to take 3 sublingual nitroglycerin within 30 minutes. Symptoms were slow to improve and the patient decided to come to the ER for evaluation by the time she got to the ER symptoms had improved but due to her symptoms with similarity to previous [place] last year patient was admitted for observation. Symptoms did eventually resolve overnight but troponins are returned elevated this morning EKG shows sinus rhythm with nonspecific ST-T abnormalities. Cardiology consulted for evaluation recommendations [facility] History Medical History: Reports:: Atrial Fibrillation, Cancer, Coronary Artery Disease, Gastroesophageal Reflux Disease(GERD), Hyperlipidemia, Hypertension, Renal Ins ufficiency Denies:: Diabetes Mellitus Type 1, Diabetes Mellitus Type 2, MRSA Other Medical History: Reports: Arthritis, Hypothyroidism Other Surgeries: Yes: Colonoscopy, Colon Resection, Hernia Repair, Hysterectomy- Partial, Thyroidectomy Amputation: No Fractures: Yes - *Social History Educational Level: Completed High School Smoking Status: Former smoker Tobacco Type: cigarettes Smoking End Date: 1995 Alcohol Intake: never Alcohol Intake Frequency:: other Substance Use Type: denies use Occupational Status: retired Housing: house Household Members: none - Psychiatric History Expresses thoughts of harming self/others: None Suicide Plan Description: No Plan *Family Hx:: Cancer, Diabetes, Heart Attack, Hyperlipidemia, Hypertension, Stroke Meds Home Medications Medication Instructions Recorded Confirmed Type aspirin 81 mg tablet,delayed 81 mg PO DAILY 09/17/17 08/10/18 History release calcium carbonate 600 mg calcium 600 mg PO ONCE tab 09/17/17 08/10/18 History (1,500 mg) tablet polyethylene glycol 3350 17 17 g PO DAILY 09/17/17 08/10/18 History gram/dose oral powder Amiodarone HCl [Amiodarone 200mg 200 mg PO DAILY 12/17/17 08/10/18 History Tab] Isosorbide Mononitrate [Isosorbide 120 mg PO DAILY 12/17/17 08/10/18 History Mononitrate ER] tramadol 50 mg tablet 50 mg PO BID tab 01/09/18 08/10/18 History pantoprazole 40 mg tablet,delayed 40 mg PO DAILY 05/01/18 08/10/18 History release Amoxicillin [Amoxicillin 875MG Tab] 875 mg PO Q12H 08/10/18 08/10/18 History Levothyroxine Sodium [Synthroid 50 mcg PO DAILY 08/10/18 08/10/18 History 50mcg (0.05mg) tab] Allergies Allergy/AdvReac Type Severity Reaction Status Date / Time cephalexin [From KEFLEX] Allergy Mild Verified 08/07/18 11:09 ciprofloxacin [CIPROFLOXACIN] Allergy Mild Verified 08/07/18 11:09 Sulfa (Sulfonamide Allergy Mild Verified 08/07/18 11:09 Antibiotics) [SULFA (SULFONAMIDE ANTIBIOTICS)] Review of Systems - *Cardiovascular Reports chest pain, Reports shortness of breath with activity - *Respiratory Reports shortness of breath with activity - *Gastrointestinal Denies abdominal pain - *Genitourinary Denies blood in urine - *Musculoskeletal Denies joint pain, Denies back pain - *Neurologic Denies abnormal speech Exam Vital signs and Labs for Last 24 Hours: Temp Pulse Resp BP Pulse Ox 98.0 F 56 L 18 160/80 H 97 08/11/18 04:10 08/11/18 04:10 08/11/18 04:10 08/11/18 04:10 08/11/18 04:10 Laboratory Results - last 24 hr 08/10/18 15:10: WBC 6.7, RBC 3.99 L, Hgb 10.7 L, Hct 34.0 L, MCV 85.4, MCH 26.9 L, MCHC 31.5 L, RDW 16.6, Plt Count 259, MPV 7.2 L, Neut % (Auto) 84.3 H, Lymph % (Auto) 8.6 L, [place] % (Auto) 5.7, Eos % (Auto) 1.1, Baso % (Auto) 0.3, Neut # (Auto) 5.6, Lymph # (Auto) 0.6 L, [place] # (Auto) 0.4, Eos # (Auto) 0.1, Baso # (Auto) 0.0 08/10/18 15:10: Sodium 137, Potassium 4.5, Chloride 102, Carbon Dioxide 27, Anion Gap 12.5, BUN 27 H, Creatinine 1.54 H, Estimated Creat Clear 40, Estimated GFR 32 L, Est GFR ( Amer) 39 L, Glucose 214 H, Calcium 8.4 L, Troponin I < 0.02 08/10/18 15:10: Hemoglobin A1c 6.0 08/10/18 16:57: POC Glucose 120 H 08/10/18 19:33: Troponin I < 0.02 08/10/18 20:47: POC Glucose 86 08/10/18 22:36: Troponin I 0.11 H 08/11/18 06:00: POC Glucose 79 I & O for Last 24 hours: Intake & Output 08/08/18 08/09/18 08/10/18 08/11/18 11:59 11:59 11:59 11:59 Intake Total 240 / 240 Balance 240 / 240 Weight 148 lb 8 oz - *Routine Neck Exam Present: supple. Absent: JVD, carotid bruit - *Routine Respiratory Exam Present: CTA bilaterally. Absent: accessory muscle use, rales, rhonchi, wheezes - *Routine Cardiovascular Exam Present: RRR. Absent: murmur, gallop, rubs - *Routine Abdominal Exam Present: soft. Absent: tenderness, distended, guarding - *Routine Extremities Exam Absent: edema, calf tenderness - *Routine Neurological Exam Present: alert, oriented X3, moving all extremities Assessment and Plan (1) Non-ST elevation [place] (NSTEMI) Current visit: Yes Status: Acute Category: Medical Code(s): I21.4 - Non-ST elevation (NSTEMI) myocardial infarction (2) Renal insufficiency Current visit: No Status: Acute Category: Medical Code(s): N28.9 - Disorder of kidney and ureter, unspecified (3) Chronic atrial fibrillation Current visit: No Status: Chronic Category: Medical Code(s): I48.2 - Chronic atrial fibrillation (4) Coronary artery disease Current visit: No Status: Chronic Qualifiers: Coronary Disease-Associated Artery/Lesion type: [place] artery [place] vs. transplanted heart: [place] heart Associated angina: without angina Qualified Code(s): I25.10 - Atherosclerotic heart disease of [place] coronary artery without angina pectoris Category: Medical Code(s): I25.10 - Atherosclerotic heart disease of [place] coronary artery without angina pectoris (5) Hypertension Current visit: No Status: Chronic Qualifiers: Hypertension type: essential hypertension Qualified Code(s): I10 - Essential (primary) hypertension Category: Medical Code(s): I10 - Essential (primary) hypertension - Assessment and plan all Dx Assessment and Plan for all problems:: 1. With non-ST elevation [place] patient with known coronary artery disease, recommend proceeding with repeat left heart catheterization and possible intervention if needed. 2. Patient has been off of anticoagulation for history of atrial fibrillation since her watchman device implantation. 3. Recommendation to follow pending results of cardiac catheterization.
--- NOTE | 2018-08-11 08:30 | History & Physical Report ---
*Admission Date: 08/10/18 *Chief complaint: Chest pain and shortness of air *History of present illness: History of present illness: 77-year-old white female with history of atrial fibrillation, status post watchman device implantation, coronary artery disease with previous [place] and coronary artery stenting in February 2017 was admitted for recurrent chest pain. Patient was seen in the office on Saturday and was feeling well. Since it had been over a year since her coronary stenting Plavix was discontinued at that time due to the patient's frequent falls history. Yesterday the patient developed onset of substernal chest discomfort with radiation to the back and left arm worsened with activity (doing her laundry) which prompted her to take 3 sublingual nitroglycerin within 30 minutes. Symptoms were slow to improve and the patient decided to come to the ER for evaluation by the time she got to the ER symptoms had improved but due to her symptoms with similarity to previous [place] last year patient was admitted for observation. Symptoms did eventually resolve overnight but troponins are returned elevated this morning EKG shows sinus rhythm with nonspecific ST-T abnormalities. Cardiology consulted for evaluation recommendations [facility] History I have reviewed the patient's past medical history: Yes Medical History: Reports:: Atrial Fibrillation, Cancer, Coronary Artery Disease, Gastroesophageal Reflux Disease(GERD), Hyperlipidemia, Hypertension, Renal Insufficiency Denies:: Diabetes Mellitus Type 1, Diabetes Mellitus Type 2, MRSA Other Medical History: Reports: Arthritis, Hypothyroidism Other Surgeries: Yes: Colonoscopy, Colon Resection, Hernia Repair, Hysterectomy- Partial, Thyroidectomy Amputation: No Fractures: Yes - *Social History Educational Level: Completed High School Smoking Status: Former smoker Tobacco Type: cigarettes Smoking End Date: 1995 Alcohol Intake: never Alcohol Intake Frequency:: other Substance Use Type: denies use Occupational Status: retired Housing: house Household Members: none - Psychiatric History Expresses thoughts of harming self/others: None Suicide Plan Description: No Plan *Family Hx:: Cancer, Diabetes, Heart Attack, Hyperlipidemia, Hypertension, Stroke Review of Systems - Review of Systems Review of systems:: pertinent systems reviewed and negative unless documented below - *Neurologic Denies abnormal speech Meds Home Medications Medication Instructions Recorded Confirmed Type aspirin 81 mg tablet,delayed 81 mg PO DAILY 09/17/17 08/10/18 History release calcium carbonate 600 mg calcium 600 mg PO DAILY tab 09/17/17 08/11/18 History (1,500 mg) tablet polyethylene glycol 3350 17 17 g PO DAILY 09/17/17 08/10/18 History gram/dose oral powder Isosorbide Mononitrate [Isosorbide 120 mg PO DAILY 12/17/17 08/10/18 History Mononitrate ER] tramadol 50 mg tablet 50 mg PO BID tab 01/09/18 08/10/18 History pantoprazole 40 mg tablet,delayed 40 mg PO DAILY 05/01/18 08/10/18 History release Amoxicillin [Amoxicillin 875MG Tab] 875 mg PO Q12H 08/10/18 08/10/18 History Levothyroxine Sodium [Synthroid 50 mcg PO DAILY 08/10/18 08/10/18 History 50mcg (0.05mg) tab] Amiodarone HCl 200 mg PO DAILY 08/11/18 08/11/18 History Bumetanide 2 mg PO DAILY 08/11/18 08/11/18 History Allergies Allergy/AdvReac Type Severity Reaction Status Date / Time cephalexin [From KEFLEX] Allergy Mild Verified 08/07/18 11:09 ciprofloxacin [CIPROFLOXACIN] Allergy Mild Verified 08/07/18 11:09 Sulfa (Sulfonamide Allergy Mild Verified 08/07/18 11:09 Antibiotics) [SULFA (SULFONAMIDE ANTIBIOTICS)] Exam Vital signs and Labs for Last 24 Hours: Temp Pulse Resp BP Pulse Ox 98.2 F 55 L 18 147/54 H 95 08/11/18 07:50 08/11/18 07:50 08/11/18 07:50 08/11/18 07:50 08/11/18 07:50 Laboratory Results - last 24 hr 08/10/18 15:10: WBC 6.7, RBC 3.99 L, Hgb 10.7 L, Hct 34.0 L, MCV 85.4, MCH 26.9 L, MCHC 31.5 L, RDW 16.6, Plt Count 259, MPV 7.2 L, Neut % (Auto) 84.3 H, Lymph % (Auto) 8.6 L, [place] % (Auto) 5.7, Eos % (Auto) 1.1, Baso % (Auto) 0.3, Neut # (Auto) 5.6, Lymph # (Auto) 0.6 L, [place] # (Auto) 0.4, Eos # (Auto) 0.1, Baso # (Auto) 0.0 08/10/18 15:10: Sodium 137, Potassium 4.5, Chloride 102, Carbon Dioxide 27, Anion Gap 12.5, BUN 27 H, Creatinine 1.54 H, Estimated Creat Clear 40, Estimated GFR 32 L, Est GFR ( Amer) 39 L, Glucose 214 H, Calcium 8.4 L, Troponin I < 0.02 08/10/18 15:10: Hemoglobin A1c 6.0 08/10/18 16:57: POC Glucose 120 H 08/10/18 19:33: Troponin I < 0.02 08/10/18 20:47: POC Glucose 86 08/10/18 22:36: Troponin I 0.11 H 08/11/18 06:00: POC Glucose 79 I & O for Last 24 hours: Intake & Output 08/08/18 08/09/18 08/10/18 08/11/18 11:59 11:59 11:59 11:59 Intake Total 600 / 600 Balance 600 / 600 Weight 148 lb 8 oz Narrative: Patient pleasant, alert. Oriented x3. No cranial nerve deficits. Anterior lung [place] are clear. Heart rate regular without murmurs. Abdomen soft nontender. No edema or clubbing. Moves all extremities well. Assessment and Plan (1) Non-ST elevation [place] (NSTEMI) Current visit: Yes Status: Acute Category: Medical Code(s): I21.4 - Non-ST elevation (NSTEMI) myocardial infarction (2) Renal insufficiency Current visit: No Status: Acute Category: Medical Code(s): N28.9 - Disorder of kidney and ureter, unspecified (3) Chronic atrial fibrillation Current visit: No Status: Chronic Category: Medical Code(s): I48.2 - Chronic atrial fibrillation (4) Coronary artery disease Current visit: No Status: Chronic Qualifiers: Coronary Disease-Associated Artery/Lesion type: [place] artery [place] vs. transplanted heart: [place] heart Associated angina: without angina Qualified Code(s): I25.10 - Atherosclerotic heart disease of [place] coronary artery without angina pectoris Category: Medical Code(s): I25.10 - Atherosclerotic heart disease of [place] coronary artery without angina pectoris (5) Hypertension Current visit: No Status: Chronic Qualifiers: Hypertension type: essential hypertension Qualified Code(s): I10 - Essential (primary) hypertension Category: Medical Code(s): I10 - Essential (primary) hypertension - Assessment and plan all Dx Assessment and Plan for all problems:: Agree with admission to hospital. Will follow with cardiology. No changes in plan from my perspective at this point.
[2018-08-12 05:59] LABS: Hematocrit 31.8 % (37.0-47.0); Hemoglobin 10.1 g/dL (12.2-16.2)
[2018-08-12 06:08] LABS: Chol/HDL Ratio 1.8 (1-3.5)
--- NOTE | 2018-08-12 11:08 | Progress Note ---
Subjective Date: 08/12/18 Time: 11:05 Principal diagnosis: CAD, NSTEMI Interval history: 67-year-old female in bed in no acute distress. States she feels better and is ready to go home. Patient received coronary stent to her LAD yesterday. Exam Vital signs and Labs for Last 24 Hours: Temp Pulse Resp BP Pulse Ox 98.5 F 60 16 177/89 H 95 08/12/18 07:36 08/12/18 08:00 08/11/18 20:45 08/12/18 06:00 08/12/18 06:00 Laboratory Results - last 24 hr 08/11/18 11:06: POC Glucose 83 08/11/18 13:08: Activated Clotting Time 376 H* 08/12/18 05:42: Hgb 10.1 L, Hct 31.8 L 08/12/18 05:42: Creatinine 0.99 D, Estimated Creat Clear 49, Estimated GFR 54 L , Est GFR ( Amer) 65 D 08/12/18 05:42: Triglycerides 77, Cholesterol 122 L, LDL Cholesterol 40, VLDL Cholesterol 15, HDL Cholesterol 67, Cholesterol/HDL Ratio 1.8 I & O for Last 24 hours: Intake & Output 08/09/18 08/10/18 08/11/18 08/12/18 11:59 11:59 11:59 11:59 Intake Total 600 / 600 1190 / 1190 Output Total 1800 / 1800 Balance 600 / 600 -610 / -610 Weight 148 lb 8 oz 148 lb 8 oz - *Routine Neck Exam Present: supple. Absent: JVD, carotid bruit - *Routine Respiratory Exam Present: CTA bilaterally. Absent: accessory muscle use, rales, rhonchi, wheezes - *Routine Cardiovascular Exam Present: RRR. Absent: murmur, gallop, rubs - *Routine Extremities Exam Absent: edema, calf tenderness - *Routine Neurological Exam Present: alert, oriented X3, moving all extremities Progress Note: A&P (1) Non-ST elevation OR (NSTEMI) Status: Acute Current Visit: Yes (2) Renal insufficiency Status: Acute Current Visit: No (3) Chronic atrial fibrillation Status: Chronic Current Visit: No (4) Coronary artery disease Status: Chronic Current Visit: No (5) Hypertension Status: Chronic Current Visit: No Assessment and Plan for All Diagnoses:: 1. S/P coronary stenting of LAD. Patient should remain on aspirin and Brilinta indefinitely. 2. Paroxysmal atrial fibrillation with history of watchman occluder device placement facilitating discontinuation of anticoagulation therapy. Patient is a [employer] and does not take blood. Patient is maintaining sinus rhythm with amiodarone therapy. EKG this admission shows sinus rhythm with QTC of 428 ms. 3. Due to elevated left ventricular pressure at time of cardiac catheterization of 30 mmHg, would recommend instituting low-dose diuretic therapy. We will add spironolactone 25 mg daily and plan on checking her metabolic panel next week at follow-up. 4. Okay for discharge from cardiology standpoint.
--- NOTE | 2018-08-12 11:34 | Discharge Summary ---
General - General Admission date:: 08/11/18 Discharge date: 08/12/18 HPI HPI: History of present illness: 77-year-old white female with history of atrial fibrillation, status post watchman device implantation, coronary artery disease with previous CT and coronary artery stenting in February 2017 was admitted for recurrent chest pain. Patient was seen in the office on Saturday and was feeling well. Since it had been over a year since her coronary stenting Plavix was discontinued at that time due to the patient's frequent falls history. Yesterday the patient developed onset of substernal chest discomfort with radiation to the back and left arm worsened with activity (doing her laundry) which prompted her to take 3 sublingual nitroglycerin within 30 minutes. Symptoms were slow to improve and the patient decided to come to the ER for evaluation by the time she got to the ER symptoms had improved but due to her symptoms with similarity to previous CT last year patient was admitted for observation. Symptoms did eventually resolve overnight but troponins are returned elevated this morning EKG shows sinus rhythm with nonspecific ST-T abnormalities. Cardiology consulted for evaluation recommendations Hospital Course Hospital Course: 77yo F admitted due to chest pain and elevated troponins. Cardiology consulted. Taken to photo lab specialist for intervention. S/P coronary stenting of LAD. Started on aspirin and Brilinta with recommendation to continue indefinitely. Also has a history of Paroxysmal atrial fibrillation after brittnee stenting with history of watchman occluder device placement facilitating discontinuation of anticoagulation therapy. 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 Patient is maintaining sinus rhythm with amiodarone therapy. EKG this admission shows sinus rhythm with QTC of 428 ms. Due to elevated left ventricular pressure at time of cardiac catheterization of 30 mmHg, initiated low dose diuretic with lasix daily. Cardiology added spironolactone 25 mg daily. Medically stable fro DC home. Hemodynamically stable, tolerating regular diet. PLan to follow-up with cardiology in the coming week. Objective Vital signs: Temp Pulse Resp BP Pulse Ox 98.3 F 60 16 177/89 H 94 L 08/12/18 11:31 08/12/18 08:00 08/11/18 20:45 08/12/18 06:00 08/12/18 08:30 Narrative: Patient pleasant, alert. Oriented x3. No cranial nerve deficits. Anterior lung harris are clear. Heart rate regular without murmurs. Abdomen soft nontender. No edema or clubbing. Moves all extremities well. Right wrist healign well, no bleeding, significant ecchymosis at insertion site of catheter. Results Labs on day of discharge: Labs from last 24 hours 08/12/18 08/12/18 08/12/18 05:42 05:42 05:42 Hgb 10.1 L Hct 31.8 L Activated Clotting Time Creatinine 0.99 D Estimated Creat Clear 49 Estimated GFR 54 L Est GFR ( Amer) 65 D Triglycerides 77 Cholesterol 122 L LDL Cholesterol 40 VLDL Cholesterol 15 HDL Cholesterol 67 Cholesterol/HDL Ratio 1.8 08/11/18 13:08 Hgb Hct Activated Clotting Time 376 H* Creatinine Estimated Creat Clear Estimated GFR Est GFR ( Amer) Triglycerides Cholesterol LDL Cholesterol VLDL Cholesterol HDL Cholesterol Cholesterol/HDL Ratio DS: Diagnosis - Discharge Diagnosis (1) Non-ST elevation CT (NSTEMI) Status: Acute (2) Renal insufficiency Status: Acute (3) Chronic atrial fibrillation Status: Chronic (4) Coronary artery disease Status: Chronic (5) Hypertension Status: Chronic Discharge Plan - Patient Discharge Instructions ACTIVITY: Continue current activity DIET: continue same diet, low fat, low cholesterol Patient Instructions: Cardiac Catheterization, DI for Chest Pain, Surgical Site Infection - Follow up Plan Follow up with: Karla Chiu [Primary Care Provider] - 1 week Otto Schaffer MD [Staff Physician] - Disposition: Home, Self-Jail Medications: Home Medications Medication Instructions Recorded Confirmed Type aspirin 81 mg tablet,delayed 81 mg PO DAILY 09/17/17 08/10/18 History release calcium carbonate 600 mg calcium 600 mg PO DAILY tab 09/17/17 08/11/18 History (1,500 mg) tablet polyethylene glycol 3350 17 17 g PO DAILY 09/17/17 08/10/18 History gram/dose oral powder Isosorbide Mononitrate [Isosorbide 120 mg PO DAILY 12/17/17 08/10/18 History Mononitrate ER] tramadol 50 mg tablet 50 mg PO BID tab 01/09/18 08/10/18 History pantoprazole 40 mg tablet,delayed 40 mg PO DAILY 05/01/18 08/10/18 History release Levothyroxine Sodium [Synthroid 50 mcg PO DAILY 08/10/18 08/10/18 History 50mcg (0.05mg) tab] Amiodarone HCl 200 mg PO DAILY 08/11/18 08/11/18 History Bumetanide 2 mg PO DAILY 08/11/18 08/11/18 History Prescriptions/Medication Reconciliation: New Amiodarone HCl [Cordarone 200mg tablet] 200 mg PO DAILY tablet Amlodipine Besylate [Norvasc 10mg tablet] 10 mg PO DAILY 30 Days #30 tablet Lisinopril [Zestril 20mg tab] 20 mg PO DAILY 30 Days #30 tablet Spironolactone [Aldactone 25mg Tab] 25 mg PO DAILY 30 Days #30 tablet Continue polyethylene glycol 3350 17 gram/dose oral powder 17 g PO DAILY aspirin 81 mg tablet,delayed release 81 mg PO DAILY calcium carbonate 600 mg calcium (1,500 mg) tablet 600 mg PO DAILY tab tramadol 50 mg tablet 50 mg PO BID tab pantoprazole 40 mg tablet,delayed release 40 mg PO DAILY pravastatin 40 mg tablet 40 mg PO HS #90 tab Isosorbide Mononitrate [Isosorbide Mononitrate ER] 120 mg PO DAILY Levothyroxine Sodium [Synthroid 50mcg (0.05mg) tab] 50 mcg PO DAILY Bumetanide 2 mg PO DAILY Amiodarone HCl 200 mg PO DAILY Discontinued Amoxicillin [Amoxicillin 875MG Tab] 875 mg PO Q12H No Action ticagrelor 90 mg tablet 90 mg PO BID 30 Days #60 tab
== END 2018-08-12 12:45 | disposition home or self-care (01) ==
LOC: 2ND 15:01 → ER 15:01 → 2ND 16:54
PROVIDERS: ADMIT Internal Medicine Adolescent Medicine; ATTEND Internal Medicine Adolescent Medicine

== ENCOUNTER → 2018-08-22 08:35 | Outpatient (CLI) | payer MEDICARE, OTHER, SELFPAY | PROVIDERS: PCP Family Medicine; Visit Provider Internal Medicine | DX: I77.0 Arteriovenous fistula, acquired (principal); T14.8XXA Other injury of unspecified body region, initial encounter | CPT/HCPCS: 93931 ==

== ENCOUNTER → 2018-10-14 10:10 | Outpatient (CLI) | payer MEDICARE, OTHER, MEDICAID, SELFPAY ==
[2018-10-14 12:24] LABS: Anion Gap 13.3 mEq/L (5-15); Blood Urea Nitrogen 34 mg/dL (7-18); Calcium 9.1 mg/dL (8.5-10.1); Carbon Dioxide 29 mmol/L (21.0-32.0); Chloride 100 mmol/L (98-107); Creatinine,Serum 1.57 mg/dL (0.55-1.02); Estimated Glomerular Filt Rate 32 ml/min (>60); GFR (African American) 38 ML/MIN (>60); Glucose 83 mg/dL (74-106); Potassium 4.3 mmoL/L (3.5-5.1); Sodium 138 mmol/L (136-145)
== END ==
PROVIDERS: Visit Provider Internal Medicine
DX: E78.2 Mixed hyperlipidemia (principal); I10 Essential (primary) hypertension; I25.10 Atherosclerotic heart disease of native coronary artery without angina pectoris; I48.0 Paroxysmal atrial fibrillation
CPT/HCPCS: 36415; 80048

== ENCOUNTER → 2018-11-11 13:29 | Outpatient (CLI) | payer MEDICARE, OTHER, MEDICAID, SELFPAY ==
[2018-11-11 14:56] LABS: Anion Gap 15.4 mEq/L (5-15); Blood Urea Nitrogen 27 mg/dL (7-18); Calcium 9.1 mg/dL (8.5-10.1); Carbon Dioxide 28 mmol/L (21.0-32.0); Chloride 103 mmol/L (98-107); Creatinine,Serum 1.51 mg/dL (0.55-1.02); Estimated Glomerular Filt Rate 33 ml/min (>60); GFR (African American) 40 ML/MIN (>60); Glucose 77 mg/dL (74-106); Potassium 4.4 mmoL/L (3.5-5.1); Sodium 142 mmol/L (136-145)
== END ==
PROVIDERS: Visit Provider Internal Medicine
DX: D64.9 Anemia, unspecified (principal); I25.10 Atherosclerotic heart disease of native coronary artery without angina pectoris; I48.2 Chronic atrial fibrillation; I50.32 Chronic diastolic (congestive) heart failure; I50.9 Heart failure, unspecified; N28.9 Disorder of kidney and ureter, unspecified; R06.09 Other forms of dyspnea; R42 Dizziness and giddiness; R60.0 Localized edema; R94.31 Abnormal electrocardiogram [ECG] [EKG]; Z79.899 Other long term (current) drug therapy; Z91.81 History of falling
CPT/HCPCS: 36415; 80048

== ENCOUNTER → 2018-11-25 12:59 | Outpatient (CLI) | payer MEDICARE, OTHER, MEDICAID, SELFPAY ==
--- NOTE | 2018-11-25 13:03 | XR_ITS ---
EXAM: XR thoracic spine 3V HISTORY: Pain, back pain ITS.REASON: back pain Comparison: 07/10/2018 lateral chest x-ray FINDINGS: There is diffuse osteopenia with thoracic kyphosis. There is mild multiple wedge compression changes involving the thoracic vertebra at T4, T6, T7, T8, and T9. The changes at T4 may be slightly increased. No lytic changes apparent. There is mild multilevel degenerative disc disease. IMPRESSION: Use osteopenia with thoracic kyphosis with chronic wedging of multiple vertebral bodies. There is moderate wedging of T4 which appear slightly worse.
== END ==
PROVIDERS: PCP Family Medicine; Visit Provider Internal Medicine
DX: Z91.81 History of falling; M54.6 Pain in thoracic spine
CPT/HCPCS: 72072

== ENCOUNTER → 2018-12-30 14:27 | Outpatient (CLI) | payer MEDICARE, OTHER, SELFPAY ==
--- NOTE | 2018-12-30 14:42 | XR_ITS ---
XR chest 2V HISTORY: ITS.REASON: on amiodarone therapy ORDERING PHYSICIAN: Otto Schaffer MD PATIENT AGE: 78 years COMPARISON: 08/10/2018 FINDINGS: Unremarkable heart size. There is a wire mesh noted along the mid and left aspect of the heart and may be related to a occlusion device. Coronary artery stent is present. Calcified granuloma is present in the left lower lobe. There is hyperinflation with attenuation of peripheral pulmonary vessels consistent with COPD. No pulmonary fibrosis evident. There is kyphosis of the thoracic spine with mild wedging of mid dorsal vertebral bodies unchanged. IMPRESSION: No change with no acute finding. No radiographic evidence of amiodarone lung toxicity COPD
== END ==
PROVIDERS: PCP Family Medicine; Visit Provider Internal Medicine
DX: R94.31 Abnormal electrocardiogram [ECG] [EKG]; I25.10 Atherosclerotic heart disease of native coronary artery without angina pectoris; I48.0 Paroxysmal atrial fibrillation; I48.2 Chronic atrial fibrillation; E78.2 Mixed hyperlipidemia; I50.9 Heart failure, unspecified; R06.09 Other forms of dyspnea; R60.0 Localized edema; Z79.899 Other long term (current) drug therapy
CPT/HCPCS: 71046

== ENCOUNTER → 2019-01-08 09:02 | Outpatient (CLI) | payer MEDICARE, OTHER, SELFPAY ==
[2019-01-08 10:24] LABS: Alanine Aminotransferase 31 U/L (12-78); Albumin Level 3.5 gm/dL (3.4-5.0); Alkaline Phosphatase 94 U/L (46-116); Aspartate Amino Transferase 28 U/L (15-37); Bilirubin,Direct 0.2 mg/dL (0.0-0.2); Bilirubin,Indirect 0.5 mg/dL (0.0-0.9); Bilirubin,Total 0.7 mg/dL (0.2-1.0); Chol/HDL Ratio 2.2 (1-3.5); Cholesterol 145 mg/dL (140-200); HDL Cholesterol 66 mg/dL (29-89); LDL Cholesterol 59 mg/dL (0-130); Total Protein,Serum 6.5 gm/dL (6.4-8.2); Triglycerides 102 mg/dL (30-200); VLDL Cholesterol 20 mg/dL (0-40)
[2019-01-08 19:32] LABS: Free Thyroxine Index 6.1 ug/dL (5.93-13.13); T4 (Thyroxine) 16.6 ug/dl (4.7-13.3); Thyroid Stimulating Hormone 0.98 uIU/ml (0.358-3.740); Triiodothryronine (T3) Uptake 37 % (31-39)
== END ==
PROVIDERS: Physician Assistant; Visit Provider Internal Medicine
DX: I10 Essential (primary) hypertension (principal); I25.10 Atherosclerotic heart disease of native coronary artery without angina pectoris; I48.2 Chronic atrial fibrillation; R06.09 Other forms of dyspnea; R94.31 Abnormal electrocardiogram [ECG] [EKG]; Z79.899 Other long term (current) drug therapy
CPT/HCPCS: 36415; 80061; 80076; 84436; 84443; 84479

== ENCOUNTER → 2019-04-07 14:23 | Outpatient (CLI) | payer MEDICARE, OTHER, SELFPAY ==
--- NOTE | 2019-04-07 14:38 | US_ITS ---
US thyroid HISTORY: ITS.REASON: THYROID ENLARGEMENT ORDERING PHYSICIAN: Karla Chiu PATIENT AGE: 78 years Comparison: None FINDINGS: The right lobe is 3.5 x 1.7 x 1.6 cm with some mild heterogeneous echogenicity but no discrete mass or nodule. The left lobe is 3.6 x 2.1 x 1.5 cm. There is a hypoechoic nodule along the mid aspect of the left lobe posteriorly at 1.9 x 1.1 cm. The isthmus is slightly thickened at 5 mm. IMPRESSION: There is a 1.9 cm hypoechoic nodule in the mid aspect of the left lobe of the thyroid gland. This nodule is fairly well-circumscribed without obvious calcification. Suggest 6 month follow-up to confirm stability. Alternatively, FNA could be performed with sonographic guidance if clinically desired..
== END ==
PROVIDERS: PCP Family Medicine; Visit Provider Family Medicine
DX: E04.9 Nontoxic goiter, unspecified (principal)
CPT/HCPCS: 76536

== ENCOUNTER → 2019-04-28 10:48 | Outpatient (CLI) | payer MEDICARE, OTHER, SELFPAY ==
[2019-04-28 14:39] LABS: Alanine Aminotransferase 26 U/L (12-78); Albumin Level 3.6 gm/dL (3.4-5.0); Alkaline Phosphatase 107 U/L (46-116); Aspartate Amino Transferase 22 U/L (15-37); Bilirubin,Direct 0.2 mg/dL (0.0-0.2); Bilirubin,Indirect 0.5 mg/dL (0.0-0.9); Bilirubin,Total 0.7 mg/dL (0.2-1.0); Free T4 (Free Thyroxine) 1.92 ng/dl (0.76-1.46); Thyroid Stimulating Hormone 0.64 uIU/ml (0.358-3.740); Total Protein,Serum 6.3 gm/dL (6.4-8.2)
== END ==
PROVIDERS: Nurse Practitioner Family; Visit Provider Physician Assistant
DX: Z79.01 Long term (current) use of anticoagulants (principal); I48.0 Paroxysmal atrial fibrillation; Z51.81 Encounter for therapeutic drug level monitoring
CPT/HCPCS: 36415; 80076; 84439; 84443